=== PATIENT | female | born 1990 | race American Indian/Alaskan Native ===

== ENCOUNTER 2019-06-14 13:53 | Inpatient (IN) | payer OTHER ==
[2019-06-14] MEDS ORDERED: hydrALAZINE 20 MG/1 ML INJ IV PRN (15:31)
[2019-06-14] MEDS ORDERED: LACTATED RINGERS 1,000 ML ONE (16:11)
[2019-06-14] MEDS ORDERED: MAGNESIUM SULFATE 40GM/1000ML 40 GM/1,000 ML BAG IV ONE (16:52)
[2019-06-14] MEDS ORDERED: MAGNESIUM SULFATE 4 GM/100 ML BAG IV ONE ×2 (16:52→19:42)
[2019-06-14 16:53] LABS: Hematocrit 31.8 % (30.3-42.9); Hemoglobin 11.1 gm/dl (10.1-14.3); Mean Corpuscular HGB Conc 35 % (30-34); Mean Corpuscular Volume 87 fl (79-97); Platelet Count 254 K/mm3 (140-440); Red Blood Count 3.67 M/mm3 (3.65-5.03); Red Cell Distribution Width 14.5 % (13.2-15.2)
[2019-06-14 17:17] LABS: Alanine Aminotransferase 13 units/L (7-56)
[2019-06-14 17:18] LABS: Alanine Aminotransferase 13 units/L (7-56); Albumin 3.6 g/dL (3.9-5); BUN/Creatinine Ratio 12; Blood Urea Nitrogen 6 mg/dL (7-17); Calcium 8.9 mg/dL (8.4-10.2); Hemolysis Index 23
--- NOTE | 2019-06-14 18:45 | History and Physical Report ---
History of Present Illness Date of examination: 06/14/19 Date of admission: 06/14/19 15:28 Chief complaint: elevated blood pressure at 22.5 weeks Past History - Obstetrical History : 3 Medications and Allergies Allergies Allergy/AdvReac Type Severity Reaction Status Date / Time No Known Allergies Allergy Unverified 06/14/19 15:26 Active Meds: Active Medications Hydralazine HCl (Apresoline) 10 mg IV Q30MIN PRN PRN Reason: elevated B/p Last Admin: 06/14/19 16:57 Dose: 10 mg Documented by: - Vital Signs Vital signs: Vital Signs Pulse BP 97 H 182/92 06/14/19 14:38 06/14/19 14:38 Temp Pulse Resp BP Pulse Ox 97.9 F 64 16 148/64 06/14/19 14:39 06/14/19 18:26 06/14/19 18:26 06/14/19 18:26 Results Result Diagrams: 06/14/19 16:10 06/14/19 16:10 Abnormal lab results 06/14/19 06/14/19 06/14/19 Range/Units 16:10 16:10 16:10 MCHC 35 H (30-34) % Sodium 136 L (137-145) mmol/L Carbon Dioxide 18 L (22-30) mmol/L BUN 6 L (7-17) mg/dL Creatinine 0.5 L 0.5 L (0.7-1.2) mg/dL Lactate Dehydrogenase 232 H (91-180) units/L Albumin 3.6 L (3.9-5) g/dL All other labs normal.
[2019-06-14] MEDS ORDERED: MAGNESIUM SULFATE 40GM/1000ML 40 GM/1,000 ML BAG IV SCH (19:00)
[2019-06-14 19:24] LABS: Amorphous Crystals,Urine Few; Bilirubin,Urine NEG (Negative); Blood,Urine NEG (Negative); Color,Urine Yellow (Yellow); Mucus,Urine FEW /HPF; Protein,Urine <15 mg/dL mg/dL (Negative)
[2019-06-14] MEDS: ZOLPIDEM 5 MG TAB PO PRN (20:22)
[2019-06-14] MEDS: ONDANSETRON 4 MG/2 ML INJ IV PRN (20:28)
[2019-06-15] MEDS: LACTATED RINGERS 1,000 ML IV SCH ×2 (04:55→20:03)
[2019-06-15] MEDS: ONDANSETRON 4 MG/2 ML INJ IV PRN ×2 (08:57→20:00)
--- NOTE | 2019-06-15 14:49 | Consultation ---
History of Present Illness Consult date: 06/15/19 History of present illness: HPI Ms. Cerrato is a 29 y/o SUELLEN 10/13/19 EGA 22 6/7 weeks Sent in by OB with elevated BP's Patient Followed by [facility] for Schley/Di Twin Preg with Severe IUGR Twin A Patient reports BP's elevated early in ? in first tri - and reports being on antihypertensive meds for around 6 weeks BP's AT [facility] up to 187/106 - received IV Hydralazine 10 mg BP's now 135/79 , 134/80 CAMP's but after Mg started Denies Scotoma or RUQ Pain Followed by [facility] US done 06/07/19 - BP 155/88 Twin A 158g - 0% , , MVP at 2.2 cm, S/D ratio at 5.6 Twin B 464g - 56% , MVP at 5.7 cm , S/D ratio at Discordance - 66% [facility] US done yesterday 06/14/19 - BP at 162/97 Twin A - MVP at 2.87, AEDF Twin B - MVP at 4.32, S/D at 3.30 [facility] US 06/15/19 Twin A at 200g - 0% with AEDF , MVP at 2.3 cm Twin B at 565g - 56% S/D at 3.2 , MVP at 4.1 cm Labs - AST/ALT at Plts at 254 creat at .5 UA spot at < 15 H/H at 07/05 Abd obese NT no RUQ Pain Ext tr edema NT ,DTR 08/26, no clonus Past History - Obstetrical History : 3 Medications and Allergies Allergies Allergy/AdvReac Type Severity Reaction Status Date / Time No Known Allergies Allergy Unverified 06/14/19 15:26 Home Medications Medication Instructions Recorded Confirmed Last Taken Type Methyldopa [Aldomet] 250 mg PO BID 06/15/19 06/15/19 06/14/19 08:00 History Vitamin 1 tab PO DAILY 06/15/19 06/15/19 Unknown History Zofran ODT TAB 4 mg PO TID 06/15/19 06/15/19 06/14/19 08:00 History Active Meds: Active Medications Hydralazine HCl (Apresoline) 10 mg IV Q30MIN PRN PRN Reason: elevated B/p Last Admin: 06/14/19 16:57 Dose: 10 mg Documented by: Lactated Ringer's (Lactated Ringers) 1,000 mls @ 125 mls/hr IV DIRECT LYNETTE Last Admin: 06/15/19 04:55 Dose: 125 mls/hr Documented by: Magnesium Sulfate (Magnesium Sulfate 40gm/1000ml) 40 gm in 1,000 mls @ 50 mls/hr IV DIRECT LYNETTE Ondansetron HCl (Zofran) 4 mg IV Q4H PRN PRN Reason: Nausea And Vomiting Last Admin: 06/15/19 08:57 Dose: 4 mg Documented by: Zolpidem Tartrate (Ambien) 5 mg PO QHS PRN PRN Reason: Sleep Last Admin: 06/14/19 20:22 Dose: 5 mg Documented by: - Vital Signs Vital signs: Vital Signs Pulse BP 97 H 182/92 06/14/19 14:38 06/14/19 14:38 Temp Pulse Resp BP Pulse Ox 98.5 F 102 H 18 144/86 06/15/19 12:33 06/15/19 13:14 06/15/19 12:33 06/15/19 13:14 Results Result Diagrams: 06/14/19 16:10 06/14/19 16:10 Abnormal lab results 06/14/19 06/14/19 06/14/19 Range/Units 16:10 16:10 16:10 MCHC 35 H (30-34) % Sodium 136 L (137-145) mmol/L Carbon Dioxide 18 L (22-30) mmol/L BUN 6 L (7-17) mg/dL Creatinine 0.5 L 0.5 L (0.7-1.2) mg/dL Magnesium (1.7-2.3) mg/dL Lactate Dehydrogenase 232 H (91-180) units/L Albumin 3.6 L (3.9-5) g/dL 06/15/19 Range/Units 00:39 MCHC (30-34) % Sodium (137-145) mmol/L Carbon Dioxide (22-30) mmol/L BUN (7-17) mg/dL Creatinine (0.7-1.2) mg/dL Magnesium 4.40 H (1.7-2.3) mg/dL Lactate Dehydrogenase (91-180) units/L Albumin (3.9-5) g/dL All other labs normal. Assessment and Plan Impression: 1. Schley/Di Twin IUP at 22 6/7 weeks 2. Selective IUGR Twin A - (Possible brewing TTTS but does not yet meet criteria) 3. Twin A Severe IUGR with AEDF 4. Twin B - EFW at 56% 5. Suspected CHTN - R/O superimposed preeclampsia 6. Prior C/S 7. Prior H/O Preeclampsia at 32 weeks 8. MO Recommendations: 1. Patient does not meet criteria for TTTS at this time 2. High risk for demise of Twin A - This could adversely effect Twin B - (Neurological Insult) - Reviewed by both [facility] and NICU 3. Steroids for FLM at 23 5/7 weeks 4. Currently on Mg - May dc after 24 hours if no S/S of Preeclampsia with severe features 5. PIH labs twice per week while in house 6. Cord dopplers twice per week and MVP's and check bladder Twin A and B (once 26 weeks would add BPP's) 7. Dr. Sánchez also consulted patient - 8. Poor prognosis and increase risk for both neurological and physical handicaps if born at 23 - 24 weeks 9. Will continue to monitior closeley fo 10. Discontinue Methyldopa and start Labetalol 200 BID 11. EFW q 2 weeks 12. Patient counseled about different scenarios, including early delivery but very high risk at 23 to 24 weeks of morbidity and mortality, 13. Delivery would be recommended regardless for S/S of severe preeclampsia 14. IF not done - obtain TSH and 1 hour GTT, would also obtain HbA1c, 24 Hour urine for prot and CC and EKG , Torch IgG and IgM and drug screen and Antiphospholipid screen
--- NOTE | 2019-06-15 14:54 | Consultation ---
Consult Note - Parent Education Parent(s) demonstrated understanding of all the information:: Yes Additional Comment: 29 year old mother with 3 living children between the ages of 2 and 9 years old presenting with twin at 22w6d complicated by hypertension and discordant growth. Twin A is 200g, Twin B 560g currently with no definitive evidence of TTTS. Perinatologist was present for parts of this consultation and agrees that prognosis for babies is very poor especially if d elivery is indicated at an early gestation with little chance of survival without severe neurologic deficits ( 22 weeks - ~10% survival with > 50% suffering neurologic deficits and increasing survival of about 10% with every additional week of gestation). Both parents were present for this consultation. I explained that babies with severe nerologic deficits will have hearing deficits, blindness and immobility, and will not function at the same level as other children do. Based on the current poor prognosis, I explained the option of comfort care if babies need to be delivered for maternal indications in 1 - 2 weeks.(i.e. prior to 25 weeks gestation) and parents had the opportunity to ask questions which I answered to the best of my ability. Both parents understood the information provided and I encouraged them to call the NICU if they had additional questions Assessment and Plan - Assessment Estimated Weight: Twin A:200g, Twin B:560 g - Plan Plan: Timing and mode of delivery per OB team NICU will attend delivery Will continue to follow as progresses Please call NICU with questions
--- NOTE | 2019-06-15 15:40 | Ultrasound Report ---
Umbilical artery Doppler INDICATION: IUGR, twin gestation FINDINGS: Umbilical cord Doppler, BABY B heart rate is 137 bpm. S/D ratio is 3.8 ( average) Resistive index (average) equals 0.73 Waveforms are normal and persistent IMPRESSION: S/D ratio and resistive index are within normal limits for BABY B.. Signer Name: Yariel Monreal MD Signed: 06/15/2019 3:36 PM Workstation Name: [id number]
[2019-06-15] MEDS ORDERED: ACETAMINOPHEN 325 MG TAB PO PRN (15:44)
--- NOTE | 2019-06-15 16:14 | Ultrasound Report ---
Limited OB ultrasound with umbilical artery Doppler INDICATION: Intrauterine growth retardation. COMPARISON: None available. FINDINGS: The heart rate for baby A is 130 bpm. The average pulsitivity index of the umbilical artery is 3.1. No end-diastolic flow is reported. The pattern is persistent per the technologist. IMPRESSION: Abnormal umbilical artery Doppler for baby A as above is suggestive of intrauterine growth retardatio n. Signer Name: Carrington Arias MD Signed: 06/15/2019 4:10 PM Workstation Name: [id number]
--- NOTE | 2019-06-15 20:10 | Progress Note ---
Assessment and Plan Patient here with preeclampsia and iugr of twin A at zero percentile at [address] Boothe, growth discordance does not meet criteria for twin to twin. Will continue to monitor each fetus. Plan to give steroids at 23.5 weeks. 24 hour urine in process although it was supposed to be initiated on yesterday. Continue current management Subjective - Subjective Date of service: 06/15/19 Principal diagnosis: Twin IUP at 22 weeks Interval history: I feel fine Patient reports: new complaints (nausea) Objective - Vital Signs Vital Signs: Vital Signs - 12hr 06/15/19 06/15/19 06/15/19 08:12 09:03 12:31 Temperature 97.4 F L Pulse Rate 90 84 88 Respiratory 18 Rate Blood Pressure 135/79 134/80 161/98 Blood Pressure 135/79 [Left] 06/15/19 06/15/19 06/15/19 12:33 13:14 16:43 Temperature 98.5 F Pulse Rate 88 102 H 94 H Respiratory 18 Rate Blood Pressure 144/86 147/81 Blood Pressure 161/98 [Left] - Exam Breasts: deferred Cardiovascular: Regular rate, Normal S1, Normal S2 Lungs: Clear to auscultation, Normal air movement Abdomen: Present: normal appearance, soft, normal bowel sounds Uterus: Present: normal, firm FHR: auscultation normal - Labs Labs: Abnormal Labs 06/14/19 06/14/19 06/14/19 16:10 16:10 16:10 MCHC 35 H Sodium 136 L Carbon Dioxide 18 L BUN 6 L Creatinine 0.5 L 0.5 L Magnesium Lactate Dehydrogenase 232 H Albumin 3.6 L 06/15/19 00:39 MCHC Sodium Carbon Dioxide BUN Creatinine Magnesium 4.40 H Lactate Dehydrogenase Albumin Laboratory Results - last 24 hr 06/14/19 06/14/19 06/15/19 16:10 Unknown 00:39 Magnesium 4.40 H Urine Color Yellow Urine Turbidity Cloudy Urine pH 7.0 Ur Specific [place] 1.016 Urine Protein <15 mg/dl Urine Glucose (UA) Neg Urine Ketones Neg Urine Blood Neg Urine Nitrite Neg Urine Urobilinogen 2.0 Ur Leukocyte Esterase Neg Urine WBC (Auto) 1.0 Amorphous Crystals Few Urine Mucus Few Antibody Screen Negative
[2019-06-15] MEDS: DOCUSATE SODIUM 100 MG CAP PO SCH (20:34)
[2019-06-15] MEDS: LABETALOL 200 MG TAB PO SCH (22:48)
[2019-06-15] MEDS: ZOLPIDEM 5 MG TAB PO PRN (22:58)
[2019-06-16] MEDS: ONDANSETRON 4 MG/2 ML INJ IV PRN ×3 (08:46→20:30)
[2019-06-16] MEDS: DOCUSATE SODIUM 100 MG CAP PO SCH ×2 (10:08→22:04)
[2019-06-16] MEDS: LABETALOL 200 MG TAB PO SCH ×2 (10:09→22:04)
[2019-06-16] MEDS ORDERED: FLU VACC QUAD 2019-20 (3 YR UP)/PF 60 MCG/0.5 ML SYRINGE IM ONE (12:00)
--- NOTE | 2019-06-16 14:36 | Consultation ---
History of Present Illness Consult date: 06/16/19 Requesting physician: GAIL AGUIRRE History of present illness: [facility]/SHAJI 06/16/19 Ms. Cerrato is a 29 y/o SUELLEN 10/13/19 EGA 23 0/7 weeks Patient Followed by [facility] for [place]/Di Twin Preg with Severe IUGR Twin A - Sent in by [facility] due to Twin A Severe IUGR and AEDF Patient reports BP's elevated early in ? in first tri - and reports being on antihypertensive meds for around 6 weeks Discuss[address] Case with Dr. Chavez Surgeon at [facility] Does Not Meet Criteria at Present time for TTTS - Meet Criteria for Selective IUGR Twin A They do not offer Termination (Cord Occlusion) due to Law on Termination ( Sacrifice Twin A so that Twin B might not suffer neurological insult should Twin A Pass) They said [facility] and [place] might offer Termination I counseled both [facility] and [facility] and offered they termination Twin A (Cord Occlusion) and they DECLINED - "they want everything done for both babies" Nurse Philly in room They might meet criteria for Laser per [facility] should TTTS develop of possibly Persistent Reversal EDF Followed by [facility] BUENO US done 06/07/19 - BP 155/88 Twin A 158g - 0% , , MVP at 2.2 cm, S/D ratio at 5.6 Twin B 464g - 56% , MVP at 5.7 cm , S/D ratio at Discordance - 66% [facility] US done yesterday 06/14/19 - BP at 162/97 Twin A - MVP at 2.87, AEDF Twin B - MVP at 4.32, S/D at 3.30 [facility] US 06/15/19 Twin A at 200g - 0% with AEDF , MVP at 2.3 cm Twin B at 565g - 56% S/D at 3.2 , MVP at 4.1 cm Labs - AST/ALT at Plts at 254 creat at .5 UA spot at < 15 H/H at 07/05 Abd obese NT no RUQ Pain Ext tr edema NT ,DTR 08/26, no clonus BP's now stable on Labetalol 200 BID 142/71 and 143/98 (IV being started) Denies Scotoma or RUQ Pain CAMP now resolved off Mg [facility] 06/15/19 Twin A at 200g - 0% with AEDF , MVP at 2.3 cm Twin B at 565g - 56% S/D at 3.2 , MVP at 4.1 cm Labs - AST/ALT at Plts at 254 creat at .5 UA spot at < 15 H/H at 07/05 24 Hour Urine completed results pending Abd obese NT no RUQ Pain Ext no edema NT ,DTR 08/26, no clonus Past History - Obstetrical History : 3 Medications and Allergies Allergies Allergy/AdvReac Type Severity Reaction Status Date / Time No Known Allergies Allergy Unverified 06/14/19 15:26 Home Medications Medication Instructions Recorded Confirmed Last Taken Type Methyldopa [Aldomet] 250 mg PO BID 06/15/19 06/15/19 06/14/19 08:00 History Vitamin 1 tab PO DAILY 06/15/19 06/15/19 Unknown History Zofran ODT TAB 4 mg PO TID 06/15/19 06/15/19 06/14/19 08:00 History Active Meds: Active Medications Acetaminophen (Tylenol) 650 mg PO Q6H PRN PRN Reason: Pain, Mild (1-3) Last Admin: 06/15/19 16:39 Dose: 650 mg Documented by: Docusate Sodium (Colace) 100 mg PO BID [facility] Last Admin: 06/16/19 10:08 Dose: 100 mg Documented by: Hydralazine HCl (Apresoline) 10 mg IV Q30MIN PRN PRN Reason: elevated B/p Last Admin: 06/14/19 16:57 Dose: 10 mg Documented by: Lactated Ringer's (Lactated Ringers) 1,000 mls @ 125 mls/hr IV DIRECT LYNETTE Last Admin: 06/15/19 20:03 Dose: 125 mls/hr Documented by: Magnesium Sulfate (Magnesium Sulfate 40gm/1000ml) 40 gm in 1,000 mls @ 50 mls/hr IV DIRECT LYNETTE Last Infusion: 06/15/19 17:35 Dose: 0 gm/hr, 0 mls/hr Documented by: Labetalol HCl (Labetalol) 200 mg PO BID LYNETTE Last Admin: 06/16/19 10:09 Dose: 200 mg Documented by: Ondansetron HCl (Zofran) 4 mg IV Q4H PRN PRN Reason: Nausea And Vomiting Last Admin: 06/16/19 13:37 Dose: 4 mg Documented by: Zolpidem Tartrate (Ambien) 5 mg PO QHS PRN PRN Reason: Sleep Last Admin: 06/15/19 22:58 Dose: 5 mg Documented by: - Vital Signs Vital signs: Vital Signs Pulse BP 97 H 182/92 06/14/19 14:38 06/14/19 14:38 Temp Pulse Resp BP Pulse Ox 98.8 F 75 18 142/71 06/16/19 12:11 06/16/19 13:35 06/16/19 12:11 06/16/19 13:37 Results Result Diagrams: 06/14/19 16:10 06/14/19 16:10 All other labs normal.
[2019-06-16] MEDS: ZOLPIDEM 5 MG TAB PO PRN (22:06)
--- NOTE | 2019-06-16 22:15 | Progress Note ---
Subjective - Subjective Date of service: 06/16/19 Principal diagnosis: Twin IUP at 23 weeks, Pre-eclampsia Interval history: I feel fine Patient reports: new complaints (nausea) Objective - Vital Signs Vital Signs: Vital Signs - 12hr 06/16/19 06/16/19 06/16/19 12:11 13:35 13:37 Temperature 98.8 F Pulse Rate 74 75 Respiratory 18 Rate Blood Pressure 143/98 142/71 Blood Pressure 143/98 142/71 [Left] 06/16/19 06/16/19 06/16/19 16:32 16:33 20:41 Temperature 98.4 F 98.8 F Pulse Rate 63 63 74 Respiratory 18 18 Rate Blood Pressure 139/72 Blood Pressure 139/72 144/78 [Left] 06/16/19 06/16/19 06/16/19 20:43 22:04 22:06 Temperature Pulse Rate 71 67 67 Respiratory Rate Blood Pressure 144/78 161/89 161/89 Blood Pressure [Left] - Exam Breasts: deferred Cardiovascular: Regular rate, Normal S1, Normal S2 Lungs: Clear to auscultation, Normal air movement Abdomen: Present: normal appearance, soft, normal bowel sounds - Labs Labs: Abnormal Labs 06/14/19 06/14/19 06/14/19 16:10 16:10 16:10 MCHC 35 H Sodium 136 L Carbon Dioxide 18 L BUN 6 L Creatinine 0.5 L 0.5 L Magnesium Lactate Dehydrogenase 232 H Albumin 3.6 L 06/15/19 00:39 MCHC Sodium Carbon Dioxide BUN Creatinine Magnesium 4.40 H Lactate Dehydrogenase Albumin
[2019-06-16 22:29] LABS: Creatinine,Urine 57.3 mg/dL (0.1-20.0)
[2019-06-17 03:07] LABS: Creatinine 24 Hour,Urine 1.7 (0.8-2.8)
[2019-06-17] MEDS: LABETALOL 200 MG TAB PO SCH ×2 (09:13→22:14)
[2019-06-17] MEDS: ONDANSETRON 4 MG/2 ML INJ IV PRN ×3 (10:04→22:14)
[2019-06-17] MEDS: ZOLPIDEM 5 MG TAB PO PRN (22:14)
[2019-06-17] MEDS: DOCUSATE SODIUM 100 MG CAP PO SCH (22:16)
[2019-06-18] MEDS: LABETALOL 200 MG TAB PO SCH ×2 (09:09→22:15)
[2019-06-18] MEDS: DOCUSATE SODIUM 100 MG CAP PO SCH (09:11)
[2019-06-18] MEDS: ONDANSETRON 4 MG/2 ML INJ IV PRN ×3 (09:25→19:23)
[2019-06-18] MEDS: ZOLPIDEM 5 MG TAB PO PRN (22:16)
[2019-06-19] MEDS: LABETALOL 200 MG TAB PO SCH ×2 (09:41→21:50)
[2019-06-19] MEDS: DOCUSATE SODIUM 100 MG CAP PO SCH ×2 (09:41→22:00)
--- NOTE | 2019-06-19 11:17 | Progress Note ---
Assessment and Plan HD 4 for this twin IUP with selective IUGR or baby A. Will administer steroids at 23.5. Continue current management Subjective - Subjective Date of service: 06/17/19 Principal diagnosis: Twin IUP at 23 weeks, Pre-eclampsia Interval history: I feel fine. Pt is now 23 weeks. Pt made request to go outside. She denies headache or any other issues. BP has been stable Patient reports: new complaints (nausea) Objective - Vital Signs Vital Signs: Vital Signs - 12hr 06/19/19 06/19/19 06/19/19 08:02 08:07 09:34 Temperature 98.3 F Pulse Rate 76 72 Respiratory 18 Rate Blood Pressure 144/79 O2 Sat by Pulse 98 Oximetry 06/19/19 09:41 Temperature Pulse Rate 72 Respiratory Rate Blood Pressure 144/79 O2 Sat by Pulse Oximetry - Exam Abdomen: Present: normal appearance, soft. Absent: distention, tenderness Uterus: Present: normal FHR: auscultation normal - Labs Labs: Abnormal Labs 06/14/19 06/14/19 06/14/19 16:10 16:10 16:10 MCHC 35 H Sodium 136 L Carbon Dioxide 18 L BUN 6 L Creatinine 0.5 L 0.5 L Magnesium Lactate Dehydrogenase 232 H Albumin 3.6 L Urine Creatinine Ur Total Protein 24 Hr 06/15/19 06/15/19 00:39 Unknown MCHC Sodium Carbon Dioxide BUN Creatinine Magnesium 4.40 H Lactate Dehydrogenase Albumin Urine Creatinine 57.3 H Ur Total Protein 24 Hr 330.00 H
--- NOTE | 2019-06-19 13:50 | Progress Note ---
Assessment and Plan Impression: 1. [place]/Di Twin IUP at 23 3/7 weeks 2. Selective IUGR Twin A - (Possible brewing TTTS but does not yet meet criteria) 3. Twin A Severe IUGR with AEDF; today's BPP 01/28; breathing not observed on ultrasound dated 06/19/19 4. Twin B - EFW at 56%; today's BPP 8/8 dated 06/19/19 5. Suspected CHTN - R/O superimposed preeclampsia; 24H urine 330 mg 6. Prior C/S 7. Prior H/O Preeclampsia at 32 weeks 8. Obesity 9. BP in 140's/70's-80's Recommendations: 1. High risk for demise of Twin A - This could adversely effect Twin B - (Neurological Insult) - Reviewed by both [facility] and NICU 3. Steroids for FLM at 23 5/7 weeks 4. With stable BPP and no s/s preeclampsia, no change in status, may coy consider discharge S/P steroid with follow up 3 times weekly with [facility] per discussion with Dr. Younger. 5. PIH labs twice per week while in house 6. Cord dopplers On Wednesday/Wednesday/Fridays for and MVP's and check bladder Twin A and B (once 26 weeks would add BPP's) 7. Poor prognosis and increase risk for both neurological and physical handicaps if born at 23 - 24 weeks 8. Will continue to monitor closely 9. Continue Labetalol 200 BID 10. EFW q 2 weeks 13. Delivery would be recommended regardless for S/S of severe preeclampsia 14. IF not done - obtain TSH and 1 hour GTT, would also obtain HbA1c, 24 Hour urine for prot and CC and EKG , Torch IgG and IgM and drug screen 15. Initiate Low Dose Aspirin. Should you have any questions or concern, please contact our on-call physician, Dr. Younger. Thank you. Subjective - Subjective Date of service: 06/19/19 Principal diagnosis: Twin IUP at 23 weeks, Pre-eclampsia Patient reports: new complaints (denies ausea, LOF, vaginal bleeding, persistent cramping/contractions.) Objective - Vital Signs Vital Signs: Vital Signs - 12hr 06/19/19 06/19/19 06/19/19 08:02 08:07 09:34 Temperature 98.3 F Pulse Rate 76 72 Respiratory 18 Rate Blood Pressure 144/79 Blood Pressure [Left] O2 Sat by Pulse 98 Oximetry 06/19/19 06/19/19 06/19/19 09:41 11:32 11:48 Temperature 98.9 F Pulse Rate 72 82 91 H Respiratory 18 Rate Blood Pressure 144/79 144/83 Blood Pressure 144/83 [Left] O2 Sat by Pulse 98 Oximetry 06/19/19 06/19/19 06/19/19 11:53 11:58 12:03 Temperature Pulse Rate 88 81 80 Respiratory Rate Blood Pressure Blood Pressure [Left] O2 Sat by Pulse 97 97 97 Oximetry 06/19/19 06/19/19 06/19/19 12:08 12:13 12:18 Temperature Pulse Rate 79 80 73 Respiratory Rate Blood Pressure Blood Pressure [Left] O2 Sat by Pulse 97 98 98 Oximetry 06/19/19 06/19/19 06/19/19 12:23 12:28 12:34 Temperature Pulse Rate 75 81 88 Respiratory Rate Blood Pressure Blood Pressure [Left] O2 Sat by Pulse 96 98 99 Oximetry 06/19/19 06/19/19 06/19/19 12:39 12:44 12:49 Temperature Pulse Rate 89 82 86 Respiratory Rate Blood Pressure Blood Pressure [Left] O2 Sat by Pulse 98 99 98 Oximetry 06/19/19 06/19/19 06/19/19 12:54 12:59 13:04 Temperature Pulse Rate 82 83 90 Respiratory Rate Blood Pressure Blood Pressure [Left] O2 Sat by Pulse 98 98 98 Oximetry 06/19/19 06/19/19 06/19/19 13:09 13:14 13:19 Temperature Pulse Rate 80 68 76 Respiratory Rate Blood Pressure Blood Pressure [Left] O2 Sat by Pulse 97 98 96 Oximetry 06/19/19 06/19/19 06/19/19 13:24 13:29 13:34 Temperature Pulse Rate 97 H 98 H 84 Respiratory Rate Blood Pressure Blood Pressure [Left] O2 Sat by Pulse 98 99 99 Oximetry - Exam Cardiovascular: Regular rate Lungs: Normal air movement Abdomen: Present: other (gravid) - Labs Labs: Abnormal Labs 06/14/19 06/14/19 06/14/19 16:10 16:10 16:10 MCHC 35 H Sodium 136 L Carbon Dioxide 18 L BUN 6 L Creatinine 0.5 L 0.5 L Magnesium Lactate Dehydrogenase 232 H Albumin 3.6 L Urine Creatinine Ur Total Protein 24 Hr 06/15/19 06/15/19 00:39 Unknown MCHC Sodium Carbon Dioxide BUN Creatinine Magnesium 4.40 H Lactate Dehydrogenase Albumin Urine Creatinine 57.3 H Ur Total Protein 24 Hr 330.00 H
--- NOTE | 2019-06-19 14:21 | Ultrasound Report ---
Limited OB Ultrasound Biophysical profile HISTORY: Twin gestations, intrauterine growth retardation assessment. TECHNIQUE: Grayscale and color Doppler imaging performed. COMPARISON: OB ultrasound from 06/15/2019 FINDINGS: There are twin gestations. Please see below: Twin A: Heart rate of 142 bpm. On biophysical profile, the fetus received a score of 0 out of 2 for f etal breathing movement, 2 out of 2 for movement, 2 out of 2 for posture/tone, and 2 out of 2 for qualitative QUYEN. Total score was 6 out of 8. Twin B: Heart rate is 144 bpm. On biophysical profile, the fetus received a score of 2 out of 2 for f etal breathing movement, movement, posture/tone, and QUYEN. IMPRESSION: 1. BPP score of 6 out of 8 for twin A. 2. BPP score of 8 out of 8 for twin B. Signer Name: Juan Pablo Crowe MD Signed: 06/19/2019 2:16 PM Workstation Name: [id number]
--- NOTE | 2019-06-19 14:30 | Ultrasound Report ---
Umbilical vascular Ultrasound HISTORY: Twin gestations, history of IUGR and previous abnormal umbilical vascular ultrasound. TECHNIQUE: Grayscale and color Doppler imaging performed. COMPARISON: Umbilical vascular ultrasound from 06/15/2019 FINDINGS: Twin A: heart rate is 142 bpm. There is no end-diastolic flow therefore a pulsatility index was determined once again. The pulsatility index average in 3 separate free loop segments of bowel is 2. 0. Twin B: heart rate is 144 bpm. The systolic to diastolic ratio averages 4.2 with normal wavefor m and persistent blood flow. The resistive index average in 3 separate free loop segments is 0.75 wit h normal waveform and persistent blood flow. IMPRESSION: 1. Findings of IUGR again seen in twin A. 2. Unremarkable exam for twin B. Signer Name: Juan Pablo Crowe MD Signed: 06/19/2019 2:26 PM Workstation Name: [id number]
[2019-06-19] MEDS: ZOLPIDEM 5 MG TAB PO PRN (21:50)
[2019-06-19] MEDS: LACTATED RINGERS 1,000 ML IV SCH (21:55)
[2019-06-20] MEDS: LACTATED RINGERS 1,000 ML IV SCH ×2 (06:12→18:14)
--- NOTE | 2019-06-20 09:14 | Progress Note ---
Assessment and Plan Twin IUP at 23.4 weeks here with Severe IUGR of twin A and Normal growth of Twin B. Per [facility] patient may be able to be managed as outpatient after steroids on Wednesday. Pt has normal urine protein level so likely chronic hypertension instead of PIH. Plan to give steroids on Wednesday evening with repeat dose on Subjective - Subjective Date of service: 06/20/19 Principal diagnosis: Twin IUP at 23 weeks, Pre-eclampsia Interval history: I feel fine. Pt is now 23 weeks. Pt made request to go outside. She denies headache or any other issues. BP has been stable Patient reports: new complaints (denies ausea, LOF, vaginal bleeding, persistent cramping/contractions.) Objective - Vital Signs Vital Signs: Vital Signs - 12hr 06/19/19 06/20/19 06/20/19 21:50 06:10 06:11 Temperature 98.5 F Pulse Rate 86 79 83 Respiratory 18 Rate Blood Pressure 140/91 133/84 Blood Pressure [Left] O2 Sat by Pulse 100 Oximetry 06/20/19 08:17 Temperature 98.2 F Pulse Rate 67 Respiratory 18 Rate Blood Pressure 156/97 Blood Pressure 156/97 [Left] O2 Sat by Pulse Oximetry - Exam Breasts: deferred Cardiovascular: Regular rate, Normal S1 Lungs: Clear to auscultation, Normal air movement Abdomen: Present: normal appearance, soft, normal bowel sounds Vulva: both: normal Uterus: Present: normal, firm FHR: auscultation normal - Labs Labs: Abnormal Labs 06/14/19 06/14/19 06/14/19 16:10 16:10 16:10 MCHC 35 H Sodium 136 L Carbon Dioxide 18 L BUN 6 L Creatinine 0.5 L 0.5 L Magnesium Lactate Dehydrogenase 232 H Albumin 3.6 L Urine Creatinine Ur Total Protein 24 Hr 06/15/19 06/15/19 00:39 Unknown MCHC Sodium Carbon Dioxide BUN Creatinine Magnesium 4.40 H Lactate Dehydrogenase Albumin Urine Creatinine 57.3 H Ur Total Protein 24 Hr 330.00 H
[2019-06-20] MEDS: LABETALOL 200 MG TAB PO SCH ×2 (09:49→22:00)
[2019-06-20] MEDS: DOCUSATE SODIUM 100 MG CAP PO SCH (09:50)
--- NOTE | 2019-06-20 12:44 | Progress Note ---
Assessment and Plan Assessment: -[place]/Di Twin IUP at 23.4 weeks - Selective IUGR Twin A and AEDF ( 06/19/19 BPP /) -Twin B - EFW at 56% (06/19/19 BPP 03/30) - CHTN vs GHTN- 24H urine 330 mg - Preeclampsia hx at 32 weeks - Blood Pressures in 130's-150's/70's-100's- Labetalol 200mg BID Recommendations: -Continue with plan of care - Initiate Steroids for FLM at 23.5 weeks (tomorrow 06/21/19) -Cord dopplers On Wednesday/Wednesday/Fridays for and MVP's and check bladder Twin A and B (once 26 weeks would add BPP's) - High risk for demise of Twin A - This could adversely effect Twin B - (Neurological Insult) - Reviewed by both [facility] and NICU -Poor prognosis and increase risk for both neurological and physical handicaps if born at 23 - 24 weeks - With stable BPP and no s/s preeclampsia, no change in status, may consider discharge S/P steroid with follow up 3 times weekly with [facility] per manolo scussion with Dr. Younger. - PIH labs twice per week while in house -Will continue to monitor closely - Continue Labetalol 200 BID - EFW q 2 weeks - Delivery would be recommended regardless for S/S of severe preeclampsia - Please perform TSH and 1 hour GTT, would also obtain HbA1c, 24 Hour urine for prot and CC and EKG , Torch IgG and IgM and drug screen - Low Dose Aspirin once daily. Should you have any questions or concern, please contact our on-call physician. Thank you. Subjective - Subjective Date of service: 06/20/19 Principal diagnosis: Twin IUP at 23 weeks, Pre-eclampsia Patient reports: new complaints (denies RUQ pain, headaches, visual disturbances, edema, Leaking of fluid, vaginal bleeding, contractions.) Objective - Vital Signs Vital Signs: Vital Signs - 12hr 06/20/19 06/20/19 06/20/19 06:10 06:11 08:17 Temperature 98.2 F Pulse Rate 79 83 67 Respiratory 18 Rate Blood Pressure 133/84 156/97 Blood Pressure 156/97 [Left] O2 Sat by Pulse 100 Oximetry 06/20/19 06/20/19 06/20/19 09:49 12:29 12:30 Temperature Pulse Rate 67 77 70 Respiratory Rate Blood Pressure 156/97 158/103 136/76 Blood Pressure [Left] O2 Sat by Pulse Oximetry - Exam Breasts: deferred Cardiovascular: Regular rate, Normal S1, Normal S2 Lungs: Clear to auscultation, Normal air movement Abdomen: Present: normal appearance, soft, other (gravid) - Labs Labs: Abnormal Labs 06/14/19 06/14/19 06/14/19 16:10 16:10 16:10 MCHC 35 H Sodium 136 L Carbon Dioxide 18 L BUN 6 L Creatinine 0.5 L 0.5 L Magnesium Lactate Dehydrogenase 232 H Albumin 3.6 L Urine Creatinine Ur Total Protein 24 Hr 06/15/19 06/15/19 00:39 Unknown MCHC Sodium Carbon Dioxide BUN Creatinine Magnesium 4.40 H Lactate Dehydrogenase Albumin Urine Creatinine 57.3 H Ur Total Protein 24 Hr 330.00 H
[2019-06-20] MEDS: ASPIRIN 81 MG TAB CHEW PO SCH (16:20)
[2019-06-20] MEDS: ZOLPIDEM 5 MG TAB PO PRN (22:03)
[2019-06-21] MEDS: LABETALOL 200 MG TAB PO SCH ×2 (10:40→22:19)
[2019-06-21] MEDS: BETAMET ACET/BETAMET NA PH 6 MG/ML INJ 5 ML MDV IM SCH (19:56)
--- NOTE | 2019-06-21 22:04 | Progress Note ---
Assessment and Plan Twin IUP at 23.5 weeks with severe IUGR of Twin A. Patient aware of poor prognosis of Twin a and possible neurological damage to Twin B if other twin dies, but wants everything done for both. Pt also with chronic hypertension and less likely mild preeclampsia. BPs stable and all PIH labs within normal limits Pt to receive steroids on today 06/21/19 and second dose on tomorrow, with possible discharge and outpatient management on Wednesday. but will await [facility] input for final decision on discharge. Subjective - Subjective Date of service: 06/21/19 Principal diagnosis: Twin IUP at 23 weeks, Pre-eclampsia Interval history: I feel fine. Pt is now 23 weeks. Pt made request to go outside. She denies headache or any other issues. BP has been stable Patient reports: new complaints (denies RUQ pain, headaches, visual disturbances, edema, Leaking of fluid, vaginal bleeding, contractions.), movement normal Objective - Vital Signs Vital Signs: Vital Signs - 12hr 06/21/19 06/21/19 06/21/19 16:00 20:01 20:02 Temperature 97.4 F L Pulse Rate 95 H 68 68 Respiratory 16 Rate Blood Pressure 145/81 140/78 Blood Pressure 140/78 [Left] O2 Sat by Pulse Oximetry 06/21/19 06/21/19 20:05 20:10 Temperature Pulse Rate 69 82 Respiratory Rate Blood Pressure Blood Pressure [Left] O2 Sat by Pulse 97 98 Oximetry - Exam Breasts: deferred Abdomen: Present: normal appearance, soft. Absent: distention, tenderness Uterus: Present: normal FHR: auscultation normal - Labs Labs: Abnormal Labs 06/14/19 06/14/19 06/14/19 16:10 16:10 16:10 MCHC 35 H Sodium 136 L Carbon Dioxide 18 L BUN 6 L Creatinine 0.5 L 0.5 L Magnesium Lactate Dehydrogenase 232 H Albumin 3.6 L Urine Creatinine Ur Total Protein 24 Hr 06/15/19 06/15/19 00:39 Unknown MCHC Sodium Carbon Dioxide BUN Creatinine Magnesium 4.40 H Lactate Dehydrogenase Albumin Urine Creatinine 57.3 H Ur Total Protein 24 Hr 330.00 H
[2019-06-21] MEDS: DOCUSATE SODIUM 100 MG CAP PO SCH ×2 (22:18→22:19)
[2019-06-21] MEDS: ZOLPIDEM 5 MG TAB PO PRN (22:23)
--- NOTE | 2019-06-22 09:05 | Consultation ---
History of Present Illness Consult date: 06/22/19 Requesting physician: GAIL AGUIRRE History of present illness: [facility] MFM 06/22/19 Doing well No complaints - Denies CAMP's [place] or RUQ Pain Pos FM's Denies Vag bleeding leaking contrax Previously declined cord occlusion Twin A - wants everthing done [facility] 06/19/19 Twin A (IUGR) - Cord Doppler - AEDF - MVP at 2.34cm - BPP 01/28 (-2 breathing ) Twin B - Cord doppler at 4.2 and MVP at 3.8 cm - BPP 03/30 BP - 132/68 Abd obese nt no RUQ Pain Ext NT no edema DTR 08/26 no clonus Assessment: - [place]/Di Twin IUP at 23 5/7 weeks - Selective IUGR Twin A and AEDF ( 06/19/19 BPP /8) -Twin B - EFW at 56% (06/19/19 BPP 03/30) - CHTN vs GHTN- 24H urine 330 mg - Preeclampsia hx at 32 weeks - Blood Pressures in 130's-150's/70's-100's- Labetalol 200mg BID Recommendations: -Continue with plan of care - Initiate Steroids for FLM at First dose given today 06/22/19 -Cord dopplers On Wednesday/Wednesday/Fridays for and MVP's and check bladder Twin A and B (once 26 weeks would add BPP's) - High risk for demise of Twin A - This could adversely effect Twin B - (Neurological Insult) - Reviewed by both [facility] and NICU -Poor prognosis and increase risk for both neurological and physical handicaps if born at 23 - 24 weeks - With stable BPP and no s/s preeclampsia, no change in status, may consider discharge S/P steroid with follow up 3 times weekly with [facility] per discussion with Dr. Younger. - [facility] labs twice per week while in house -Will continue to monitor closely - Continue Labetalol 200 BID - EFW q 2 weeks - Delivery would be recommended regardless for S/S of severe preeclampsia - Please perform TSH and 1 hour GTT, would also obtain HbA1c, 24 Hour urine for prot and CC and EKG , Torch IgG and IgM and drug screen - Low Dose Aspirin once daily. Past History - Obstetrical History : 3 Medications and Allergies Allergies Allergy/AdvReac Type Severity Reaction Status Date / Time No Known Allergies Allergy Unverified 06/14/19 15:26 Home Medications Medication Instructions Recorded Confirmed Last Taken Type Methyldopa [Aldomet] 250 mg PO BID 06/15/19 06/15/19 06/14/19 08:00 History Vitamin 1 tab PO DAILY 06/15/19 06/15/19 Unknown History Zofran ODT TAB 4 mg PO TID 06/15/19 06/15/19 06/14/19 08:00 History Active Meds: Active Medications Acetaminophen (Tylenol) 650 mg PO Q6H PRN PRN Reason: Pain, Mild (1-3) Last Admin: 06/15/19 16:39 Dose: 650 mg Documented by: Aspirin (Baby Aspirin) 81 mg PO QDAY [facility] Last Admin: 06/20/19 16:20 Dose: 81 mg Documented by: Betamethasone Acet/Betameth SodPhos (Celestone Soluspan) 12 mg IM Q24HR [facility] Stop: 06/22/19 10:01 Last Admin: 06/21/19 19:56 Dose: 12 mg Documented by: Docusate Sodium (Colace) 100 mg PO BID [facility] Last Admin: 06/21/19 22:19 Dose: 100 mg Documented by: Hydralazine HCl (Apresoline) 10 mg IV Q30MIN PRN PRN Reason: elevated B/p Last Admin: 06/14/19 16:57 Dose: 10 mg Documented by: Lactated Ringer's (Lactated Ringers) 1,000 mls @ 125 mls/hr IV DIRECT [facility] Last Infusion: 06/20/19 23:37 Dose: 0 mls/hr Documented by: Magnesium Sulfate (Magnesium Sulfate 40gm/1000ml) 40 gm in 1,000 mls @ 50 mls/hr IV DIRECT [facility] Last Infusion: 06/15/19 17:35 Dose: 0 gm/hr, 0 mls/hr Documented by: Labetalol HCl (Labetalol) 200 mg PO BID [facility] Last Admin: 06/21/19 22:19 Dose: 200 mg Documented by: Ondansetron HCl (Zofran) 4 mg IV Q4H PRN PRN Reason: Nausea And Vomiting Last Admin: 06/18/19 19:23 Dose: 4 mg Documented by: Zolpidem Tartrate (Ambien) 5 mg PO QHS PRN PRN Reason: Sleep Last Admin: 06/21/19 22:23 Dose: 5 mg Documented by: - Vital Signs Vital signs: Vital Signs Pulse BP 97 H 182/92 06/14/19 14:38 06/14/19 14:38 Temp Pulse Resp BP Pulse Ox 97.4 F L 74 16 132/68 98 06/21/19 20:01 06/21/19 22:19 06/21/19 20:01 06/21/19 23:00 06/21/19 20:10 Results Result Diagrams: 06/14/19 16:10 06/14/19 16:10 All other labs normal.
[2019-06-22] MEDS: LABETALOL 200 MG TAB PO SCH ×2 (10:30→21:56)
[2019-06-22] MEDS: DOCUSATE SODIUM 100 MG CAP PO SCH ×2 (10:30→22:00)
[2019-06-22] MEDS: ASPIRIN 81 MG TAB CHEW PO SCH (10:31)
[2019-06-22] MEDS: BETAMET ACET/BETAMET NA PH 6 MG/ML INJ 5 ML MDV IM SCH (20:05)
[2019-06-22] MEDS: ZOLPIDEM 5 MG TAB PO PRN (21:57)
[2019-06-23] MEDS: ASPIRIN 81 MG TAB CHEW PO SCH (10:45)
[2019-06-23] MEDS: LABETALOL 200 MG TAB PO SCH ×2 (10:46→22:06)
--- NOTE | 2019-06-23 14:09 | Consultation ---
History of Present Illness Consult date: 06/23/19 Requesting physician: GAIL AGUIRRE History of present illness: [facility] MFM 06/23/19 Reviewed options with patient for LASER of Connecting vessels with Dr. Goldsmith - Surgeon in [place] Explained risks and benefits of LASER Laser Therapy: This surgical approach utilizes an operative fetoscope to deliver laser energy that then seals off the offending blood vessels on the surface of the common placenta. Because the vascular connections between the two fetuses are sealed, no further blood exchange between the fetuses takes place. It has been theorized that elimination of the vascular communications may decrease or prevent harm to the surviving twin in the case of the demise of one twin. Conference in [facility] and he is now receptive to LASER I will try to complete referral forms and assist with further evaluation and management with Dr. Goldsmith [facility] 06/19/19 Twin A (IUGR) - Cord Doppler - AEDF - MVP at 2.34cm - BPP 6/8 (-2 breathing ) Twin B - Cord doppler at 4.2 and MVP at 3.8 cm - BPP 8/8 BP - 132/68 Abd obese nt no RUQ Pain Ext NT no edema DTR / no clonus Assessment: - [place]/Di Twin IUP at 23 6/7 weeks - Selective IUGR Twin A and AEDF ( 06/19/19 BPP 6/8) -Twin B - EFW at 56% (06/19/19 BPP 8/8) - CHTN vs GHTN- 24H urine 330 mg - Preeclampsia hx at 32 weeks - Blood Pressures in 130's-150's/70's-100's- Labetalol 200mg BID Recommendations: 1. See above 2. [place] and [facility] now interested in LASER with Dr. Goldsmith in [place] 3. Will try to assist in completing referral - Steroid complete -Cord dopplers and Venous Dopplers of cord with DV if possible On Wednesday/Wednesday/Fridays for and MVP's and check bladder Twin A and B (once 26 weeks would add BPP's) - High risk for demise of Twin A - This could adversely effect Twin B - (Neurological Insult) - Reviewed by both [facility] and NICU -Poor prognosis and increase risk for both neurological and physical handicaps if born at 23 - 24 weeks - PIH labs q week while in house -Will continue to monitor closely - Continue Labetalol 200 BID - Low Dose Aspirin once daily. Past History Past History - Obstetrical History : 3 Medications and Allergies Allergies Allergy/AdvReac Type Severity Reaction Status Date / Time No Known Allergies Allergy Unverified 06/14/19 15:26 Home Medications Medication Instructions Recorded Confirmed Last Taken Type Methyldopa [Aldomet] 250 mg PO BID 06/15/19 06/15/19 06/14/19 08:00 History Vitamin 1 tab PO DAILY 06/15/19 06/15/19 Unknown History Zofran ODT TAB 4 mg PO TID 06/15/19 06/15/19 06/14/19 08:00 History Active Meds: Active Medications Acetaminophen (Tylenol) 650 mg PO Q6H PRN PRN Reason: Pain, Mild (1-3) Last Admin: 06/15/19 16:39 Dose: 650 mg Documented by: Aspirin (Baby Aspirin) 81 mg PO QDAY [facility] Last Admin: 06/23/19 10:45 Dose: 81 mg Documented by: Docusate Sodium (Colace) 100 mg PO BID [facility] Last Admin: 06/22/19 22:00 Dose: Not Given Documented by: Hydralazine HCl (Apresoline) 10 mg IV Q30MIN PRN PRN Reason: elevated B/p Last Admin: 06/14/19 16:57 Dose: 10 mg Documented by: Lactated Ringer's (Lactated Ringers) 1,000 mls @ 125 mls/hr IV DIRECT [facility] Last Infusion: 06/20/19 23:37 Dose: 0 mls/hr Documented by: Magnesium Sulfate (Magnesium Sulfate 40gm/1000ml) 40 gm in 1,000 mls @ 50 mls/hr IV DIRECT [facility] Last Infusion: 06/15/19 17:35 Dose: 0 gm/hr, 0 mls/hr Documented by: Labetalol HCl (Labetalol) 200 mg PO BID [facility] Last Admin: 06/23/19 10:46 Dose: 200 mg Documented by: Ondansetron HCl (Zofran) 4 mg IV Q4H PRN PRN Reason: Nausea And Vomiting Last Admin: 06/18/19 19:23 Dose: 4 mg Documented by: Zolpidem Tartrate (Ambien) 5 mg PO QHS PRN PRN Reason: Sleep Last Admin: 06/22/19 21:57 Dose: 5 mg Documented by: - Vital Signs Vital signs: Vital Signs Pulse BP 97 H 182/92 06/14/19 14:38 06/14/19 14:38 Temp Pulse Resp BP Pulse Ox 98.0 F 79 18 158/99 100 06/23/19 12:18 06/23/19 12:18 06/23/19 12:18 06/23/19 12:18 06/23/19 12:18 Results Result Diagrams: 06/14/19 16:10 06/14/19 16:10 All other labs normal.
--- NOTE | 2019-06-23 18:02 | Ultrasound Report ---
LIMITED OBSTETRIC ULTRASOUND WITH BIOPHYSICAL PROFILE AND UMBILICAL ARTERY DOPPLER HISTORY: Assess well-being, twin . Clinical gestational age 24 weeks 0 days. COMPARISON: OB ultrasound 06/15/2019 and 06/19/2019 TECHNIQUE: Limited OB ultrasound performed with biophysical profile. FINDINGS: There is an intrauterine twin . Chorionicity and amnionicity as well as detailed anatomic corbett rvey are not assessed on this examination. Twin A: Position: Transverse Largest vertical pocket: 2.3 cm Heart rate: 141 bpm Umbilical artery doppler, twin A: Redemonstration of absent end-diastolic flow with pulsatility index of 3.32. This is not significantl y changed compared with examination from 06/15/2019, at which point the pulsatility index measured 3. 1. BIOPHYSICAL PROFILE TWIN A: Movement: 2 Tone: 2 Breathin Amniotic Fluid: 2 Total: 8 out of 8 Twin B: Position: Breech Largest vertical pocket: 2.9 cm Heart rate: 152 bpm Umbilical artery doppler, twin B: Normal umbilical artery waveform with average systolic to diastolic ratio of 4.3. The systolic to michelle stolic ratio was 3.8 on 06/15/2019. BIOPHYSICAL PROFILE TWIN B: Movement: 2 Tone: 2 Breathin Amniotic Fluid: 2 Total: 8 out of 8 IMPRESSION 1. Twin intrauterine . 2. Biophysical Profile 8 out of 8 for both twin A and twin B. 3. Persistent absent end-diastolic flow in twin A, with pulsatility index of 3.3 not significantly ch anged compared with prior study dated 06/15/2019. 4. Normal umbilical artery waveform in twin B. Signer Name: Radha Cloud MD Signed: 06/23/2019 5:58 PM Workstation Name: [id number]
[2019-06-23] MEDS: DOCUSATE SODIUM 100 MG CAP PO SCH ×2 (19:05→22:11)
--- NOTE | 2019-06-23 20:36 | Progress Note ---
Assessment and Plan Plan for discharge on tomorrow morning on bedrest in preparation for visit to [place]. Follow up for doppler studies on Wednesday. Subjective - Subjective Principal diagnosis: Twin IUP at 23 weeks, Pre-eclampsia Interval history: I feel fine. Pt is now 23 weeks. Pt made request to go outside. She denies headache or any other issues. BP has been stable. Patient has received steroids times 2 and was advised that she has a follow up in [place] next week. Pt had lots of questions regarding transportation, housing and planning for that consult. Pt feels like she can not get anything done in here. UI advised patient that I could discharge her home on bedrest and patient insisted that she has help coming for her children and houselhold activities. Patient reports: appetite normal, voiding normally, ambulating normally Objective - Vital Signs Latest vital signs: Vital Signs Temp Pulse Resp BP BP Pulse Ox 06/23/19 20:01 79 147/92 06/23/19 16:22 98.5 F 77 18 142/70 98 06/23/19 16:21 70 142/70 97 06/23/19 12:18 98.0 F 79 18 158/99 100 06/23/19 12:17 88 158/99 06/23/19 12:16 82 98 06/23/19 10:46 97 H 157/87 06/23/19 07:53 98.2 F 85 18 134/69 98 06/23/19 07:52 77 134/69 06/23/19 07:51 74 97 06/23/19 03:49 98.3 F 86 20 139/72 06/23/19 03:48 86 139/72 06/23/19 03:47 91 H 150/82 06/22/19 23:49 98.5 F 91 H 18 132/68 06/22/19 23:47 91 H 132/68 06/22/19 21:57 81 145/88 06/22/19 21:56 81 145/88 Intake and Output 06/23/19 06/23/19 06/23/19 06:59 14:59 22:59 Intake Total 1240 120 400 Balance 1240 120 400 Intake: Oral 1240 120 400 Other: Total, Intake Amount 1000 120 400 # Voids Void 6 7 # Bowel Movements 1
--- NOTE | 2019-06-23 20:39 | Discharge Summary ---
Providers - Providers Date of Admission: 06/14/19 15:36 Date of discharge: 06/24/19 Attending physician: GAIL AGUIRRE 06/14/19 18:45 Consult to Physician [CONS] Urgent Comment: Called office at [phone] on 06/15/19 @ 1124 Consulting Provider: AURORA SHINE Physician Instructions: Reason For Exam: extreme prematurity 06/14/19 18:46 Consult to Physician [CONS] Urgent Comment: Called to NICU 06/15/19 at 1119; Dr. Curtis aware Consulting Provider: CARLOS CURTIS Physician Instructions: Reason For Exam: extreme prematurity Primary care physician: GAIL AGUIRRE Hospitalization Reason for admission: other (Preeclampsia, SEvere IUGR) Procedure details: none Hospital course: Unremearkable Condition at discharge: Fair Disposition: DC-01 TO HOME OR SELFCARE Plan - Discharge Medications Prescriptions: Labetalol [Labetalol 200mg TAB] 200 mg PO BID #60 tablet - Provider Discharge Summary Activity: routine, no sex for 6 weeks, no heavy lifting 4 weeks, no strenuous exercise Diet: routine Instructions: routine Additional instructions: [] Smoking cessation referral if applicable(refer to patient education folder for contact #) [] Refer to [facility]'s [facility] Booklet Call your doctor immediately for: * Fever > 100.5 * Heavy vaginal bleeding ( >1 pad per hour) * Severe persistent headache * Shortness of breath * Reddened, hot, painful area to leg or breast * Drainage or odor from incision. * Keep incision clean and dry at all times and follow doctor's instructions regarding bathing/showering Pt to return to [facility] on Wednesday for dopplers prior to leaving for [place] - Follow up plan Follow up: GAIL AGUIRRE MD [Primary Care Provider] - 7 Days
[2019-06-23] MEDS: ZOLPIDEM 5 MG TAB PO PRN (22:11)
[2019-06-24] MEDS: LABETALOL 200 MG TAB PO SCH (10:10)
[2019-06-24] MEDS: ASPIRIN 81 MG TAB CHEW PO SCH (10:10)
[2019-06-24 10:11] VITALS: BP 143/84
== END 2019-06-24 11:40 | disposition home or self-care (01) | DRG 831 ==
LOC: TRG 13:53 → LD 15:28 → OBSVTOIN 15:36
PROVIDERS: ADMIT Obstetrics & Gynecology; ATTEND Obstetrics & Gynecology
DX: O36.5921 Maternal care for other known or suspected poor fetal growth, second trimester, fetus 1 (principal); O11.2 Pre-existing hypertension with pre-eclampsia, second trimester; O99.212 Obesity complicating pregnancy, second trimester; E66.01 Morbid (severe) obesity due to excess calories; O30.032 Twin pregnancy, monochorionic/diamniotic, second trimester; Z3A.22 22 weeks gestation of pregnancy
CPT/HCPCS: 36415; 76815; 76816; 76819; 76820; 80053; 81001; 82565; 82570; 83615; 83735; 84156; 84450; 84460; 84550; 85027; 86850; 86900; 86901; 90686; G0378; J0360; J0702; J2405; J3475; J7120

== ENCOUNTER 2019-07-12 18:57 | Outpatient (CLI) | payer OTHER ==
[2019-07-12 20:28] VITALS: BP 140/71
[2019-07-12 20:59] LABS: Alanine Aminotransferase 17 units/L (7-56); Albumin 3.4 g/dL (3.9-5); BUN/Creatinine Ratio 16; Blood Urea Nitrogen 8 mg/dL (7-17); Calcium 9.3 mg/dL (8.4-10.2); Hemolysis Index 13; Uric Acid 4.2 mg/dL (3.5-7.6)
[2019-07-12 21:00] LABS: Hematocrit 31.2 % (30.3-42.9); Hemoglobin 10.7 gm/dl (10.1-14.3); Mean Corpuscular HGB Conc 34 % (30-34); Mean Corpuscular Volume 85 fl (79-97); Platelet Count 231 K/mm3 (140-440); Red Blood Count 3.66 M/mm3 (3.65-5.03)
== END 2019-07-12 21:29 | disposition home or self-care (01) ==
LOC: TRG 18:57
PROVIDERS: ATTEND Obstetrics & Gynecology
DX: O47.02 False labor before 37 completed weeks of gestation, second trimester (principal); O99.332 Smoking (tobacco) complicating pregnancy, second trimester; Z3A.26 26 weeks gestation of pregnancy
CPT/HCPCS: 36415; 80053; 84156; 84550; 85027

== ENCOUNTER 2019-07-20 17:18 | Inpatient (IN) | payer OTHER ==
[2019-07-20] MEDS ORDERED: BETAMET ACET/BETAMET NA PH 6 MG/ML INJ 5 ML MDV IM ONE (18:08)
--- NOTE | 2019-07-20 19:42 | Ultrasound Report ---
ULTRASOUND OBSTETRIC LIMITED INDICATION / CLINICAL INFORMATION: LOW QUYEN ON TWIN A, LEAKING FLUID. Clinical Gestational Age (GA): 27 weeks 6 days TECHNIQUE: Transabdominal. COMPARISON: Obstetrical ultrasound 06/23/2019 FINDINGS: There is a twin intrauterine . Chorionicity and amnionicity as well as detailed anatomic phoebe vey are not assessed on this examination. Limited ultrasound was performed for amniotic fluid assessment. The largest vertical pocket in twin A is slightly decreased, measuring 1.7 cm. The largest vertical pocket in twin B is normal, measuring 2.8 cm. Twin A heart rate measures 152 bpm, and twin B heart rate measures 137 bpm. IMPRESSION: 1. Limited obstetric ultrasound demonstrates a twin intrauterine with slightly decreased fl uid in twin A, with the largest vertical pocket measuring 1.7 cm. Twin B demonstrates normal amniotic fluid, with largest vertical pocket measuring 2.8 cm. Signer Name: Radha Cloud MD Signed: 07/20/2019 7:37 PM Workstation Name: [id number]
[2019-07-20] MEDS ORDERED: ZOLPIDEM 5 MG TAB PO ONE (20:55)
[2019-07-20] MEDS ORDERED: ACETAMINOPHEN 325 MG TAB PO PRN (20:55)
[2019-07-20] MEDS ORDERED: hydrALAZINE 20 MG/1 ML INJ IV ONE (20:55)
[2019-07-20] MEDS ORDERED: LACTATED RINGERS 500 ML IV ONE (21:24)
[2019-07-20] MEDS ORDERED: LACTATED RINGERS 1,000 ML ONE (21:33)
[2019-07-20 22:05] LABS: Basophils % (Auto) 0.3 % (0.0-1.8); Eosinophils # (Auto) 0.1 K/mm3 (0.0-0.4); Hematocrit 32.3 % (30.3-42.9); Lymphocytes # (Auto) 1.5 K/mm3 (1.2-5.4); Lymphocytes % (Auto) 20.1 % (13.4-35.0); Mean Corpuscular HGB Conc 34 % (30-34); Mean Corpuscular Volume 84 fl (79-97); Monocytes # (Auto) 0.4 K/mm3 (0.0-0.8); Monocytes % (Auto) 5.2 % (0.0-7.3); Red Blood Count 3.84 M/mm3 (3.65-5.03); Red Cell Distribution Width 14.9 % (13.2-15.2)
[2019-07-20 22:06] LABS: Platelet Count 258 K/mm3 (140-440)
--- NOTE | 2019-07-21 07:24 | History and Physical Report ---
History of Present Illness Date of examination: 07/20/19 Date of admission: 07/20/2019 Chief complaint: i'M LEAKING FLUID History of present illness: PATIENT IS A 29 YEAR OLD WITH A TWIN IUP AT 28 WEEKS WHO PRESENTS WITH COMPLAINT OF LEAKAGE OF FLUID. PT'S COURSE HAS BEEN COMPLICATED BY SIUGR OF TWIN A AND LASER ABLATION THERAPY FOR SEPARATION OF BLOOD FLOW WHICH WAS VERY SUCCESSFUL. HER COURSE HAS ALSO BEEN COMPLICATED BY CHRONIC HYPERTENSION FOR WHICH SHE IS ON LABETALOL AND NIFIDEPINE. Past History Past Medical History: hypertension Past Surgical History: section Family/Genetic History: none Social history: - Obstetrical History Expected Date of Delivery: 10/13/19 Actual Gestation: 28 Week(s) 0 Day(s) : 3 Number of Living Children: 3 Medications and Allergies Allergies Allergy/AdvReac Type Severity Reaction Status Date / Time No Known Allergies Allergy Unverified 06/14/19 15:26 Home Medications Medication Instructions Recorded Confirmed Last Taken Type Vitamin 1 tab PO DAILY 06/15/19 07/20/19 07/19/19 08:00 History 1 Zofran ODT TAB 4 mg PO TID 06/15/19 07/20/19 06/14/19 08:00 History NIFEdipine [Nifedipine ER] 30 mg PO ONCE 07/20/19 07/20/19 07/20/19 17:00 Histo ry labetaloL [Labetalol 200mg TAB] 300 mg PO TID 07/20/19 07/20/19 07/20/19 16:30 History 1 Active Meds: Active Medications Acetaminophen (Tylenol) 650 mg PO Q4H PRN PRN Reason: Pain, Mild (1-3) Lactated Ringer's (Lactated Ringers) 1,000 mls @ 125 mls/hr IV DIRECT [facility] Labetalol HCl (Labetalol) 300 mg PO TID [facility] Last Admin: 07/20/19 21:14 Dose: 300 mg Documented by: Zolpidem Tartrate (Ambien) 5 mg PO QHS PRN PRN Reason: Sleep Review of Systems All systems: negative Genitourinary: leakage of fluid - Vital Signs Vital signs: Vital Signs Pulse BP 92 H 175/104 07/20/19 17:57 07/20/19 17:57 Temp Pulse Resp BP Pulse Ox 98 F 97 H 143/83 100 07/20/19 18:19 07/21/19 06:36 07/21/19 06:36 07/20/19 22:01 - Physical Exam Breasts: Cardiovascular: Regular rate, Normal S1, Normal S2 Lungs: Positive: Clear to auscultation, Normal air movement Abdomen: Positive: normal appearance, soft, normal bowel sounds. Negative: distention, tenderness Genitourinary (Female): Positive: normal external genitalia, normal perenium Vulva: both: normal Vagina: Positive: normal moisture. Negative: discharge Cervix: Negative: lesion, discharge Uterus: Positive: normal size, normal contour Adnexa: both: normal Anus/Rectum: Positive: normal perianal skin, heme negative. Negative: rectal mass, hemorrhoids Extremities: Deep Tendon Reflex Grade: Normal +2 - Obstetrical FHR: auscultation normal Cervical Dilatation: 0 Results Result Diagrams: 07/20/19 21:50 Abnormal lab results 07/20/19 Range/Units 21:50 Seg Neutrophils % 73.4 H (40.0-70.0) % All other labs normal. Assessment and Plan TWIN IUP AT 28 WEEKS WHO PRESENTS AT THE RECOMMENDATION OF [facility] AND DUE TO LOF SHE WAS ADVISED TO PRESENT ON WEDNESDAY, HOWEVER SHE DID NOT PRESENT ON THAT DAY AND WAITED AN ADDITIONAL DAY. WILL NOW ADMIT FOR MONITORING FOR AEDF OF TWIN A, ALONG WITH SELECTIVE IUGR.
--- NOTE | 2019-07-21 12:44 | Consultation ---
History of Present Illness Consult date: 07/21/19 Requesting physician: GAIL AGUIRRE Reason for consult: PROM History of present illness: patient is 011 @ 28 weeks with SUELLEN 10/13/19 [place] [facility] twins gestation s/p laser ablation with IUGR baby A and AEDF that pressented because she thought that she has LOF, but has also been having urinary incontinence when she laughs; further complicated by laser ablation in [place] and IUGR twin A Past History Past Medical History: hypertension Past Surgical History: section Family/Genetic History: none - Obstetrical History Expected Date of Delivery: 10/13/19 Actual Gestation: 28 Week(s) 0 Day(s) : 3 Para: 2 Number of Pregnancies: 1 Medications and Allergies Allergies Allergy/AdvReac Type Severity Reaction Status Date / Time No Known Allergies Allergy Unverified 06/14/19 15:26 Home Medications Medication Instructions Recorded Confirmed Last Taken Type Vitamin 1 tab PO DAILY 06/15/19 07/20/19 07/19/19 08:00 History 1 Zofran ODT TAB 4 mg PO TID 06/15/19 07/20/19 06/14/19 08:00 History NIFEdipine [Nifedipine ER] 30 mg PO ONCE 07/20/19 07/20/19 07/20/19 17:00 History labetaloL [Labetalol 200mg TAB] 300 mg PO TID 07/20/19 07/20/19 07/20/19 16:30 History 1 Active Meds: Active Medications Acetaminophen (Tylenol) 650 mg PO Q4H PRN PRN Reason: Pain, Mild (1-3) Lactated Ringer's (Lactated Ringers) 1,000 mls @ 125 mls/hr IV DIRECT [facility] Labetalol HCl (Labetalol) 300 mg PO TID [facility] Last Admin: 07/21/19 09:37 Dose: 300 mg Documented by: Zolpidem Tartrate (Ambien) 5 mg PO QHS PRN PRN Reason: Sleep Review of Systems Constitutional: no fever, no chills, no sweats Eyes: no blurred vision Cardiovascular: no chest pain Respiratory: no cough, no shortness of breath, no dyspnea on exertion Gastrointestinal: no abdominal pain, no nausea - Vital Signs Vital signs: Vital Signs Pulse BP 92 H 175/104 07/20/19 17:57 07/20/19 17:57 Temp Pulse Resp BP Pulse Ox 98.7 F 88 144/79 100 07/21/19 07:38 07/21/19 11:38 07/21/19 11:38 07/20/19 22:01 - Physical Exam Cardiovascular: Regular rate Lungs: Positive: Normal air movement Abdomen: Positive: normal appearance, soft - Obstetrical FHR: category 1 FHR comments: x 2 for GA Uterine Contraction Monitor Mode: External Results Result Diagrams: 07/20/19 21:50 Abnormal lab results 07/20/19 Range/Units 21:50 Seg Neutrophils % 73.4 H (40.0-70.0) % All other labs normal. Assessment and Plan Assessment and plan 011 @ 28 weeks with SUELLEN 10/13/19 [place] Di twins gestation s/p laser ablation with IUGR baby A and AEDF, rupture RO, with MVP 1.7 in twin A - at this time patient will be admitted for monitoring - need US for EFW in twin A and B and doppler studies - repeat the beta course - would start Mag for GOLD NIB GRINDER if there are concerns on monitor - repeat the QUYEN after hydration - needs UA dopplers on MWF - needs 3x weekly QUYEN checks BPP - continuous monitoring now - contionue BP meds and checks; perform PIH labs - apparently baby A was 11 oz on the last EFW scan in our office 2 weeks ago and we need to repeat this measurement; the GA being 28 weeks is reassuring for this complicated but additionally need to check to see how many grams this baby A is now - if the baby were to Not have adequate increase in growth (ie baby not gaining any weight) with oligo and doppler changes etc we would need to consider delivery possibly soon - with any NRFHT/ cat 3 would need to deliver - if there were Reversed end diastolic flow we would also need to consider delivery - at this time the patient should remain as inpatient as she has multiple confounding factors and will likely benefit from inpatient daily monitoring - will speak with Dr Aguirre about the patient and recommendations
[2019-07-21] MEDS: ONDANSETRON 4 MG/2 ML INJ IV SCH (20:33)
[2019-07-21] MEDS: ZOLPIDEM 5 MG TAB PO PRN (23:47)
--- NOTE | 2019-07-22 00:32 | Ultrasound Report ---
ULTRASOUND OBSTETRIC Indication: Pelvic and abdominal pain COMPARISON: 06/23/2019. Findings: Twin A There is a twin intrauterine . BPD = 5.3 cm = 22 weeks, 1 day(s). Head circumference = 19.5 cm = 21 weeks, 5 day(s). Abdominal circumference = 18.0 cm = 22 weeks, 6 day(s). Femur length = 3.5 cm = 20 weeks, 6 day(s). Overall estimated sonographic age = 21 weeks, 6 day(s). heart rate is 122 beats per minute. Estimated weight is 465 grams position is transverse. Cervix appears closed. movement is present. Placenta is anterior and grade 0 . Amniotic fluid volume 20 and largest vertical pocket measuring 1.8 cm. Maternal adnexa appear normal. Resistive index measures 0.94 with a pulsatility index measuring 1.8. Twin B BPD = 6.7 cm = 27 weeks, 1 day(s). Head circumference = 25 cm = 27 weeks, 1 day(s). Abdominal circumference = 23 cm = 27 weeks, 5 day(s). Femur length = 5.4 cm = 28 weeks, 5 day(s). Overall estimated sonographic age = 27 weeks, 5 day(s). heart rate is 142 beats per minute. Estimated weight is 1148 grams position is cephalic. Cervix appears closed. movement is present. Placenta is anterior and grade 0 . Amniotic fluid volume appears normal. Maternal adnexa appear normal. Normal resistive index measuring 0.71. Normal SD ratio average of 3.4 Impression: Normal umbilical cord Doppler waveform of twin B with persistently abnormal umbilical cord Doppler of twin A, similar to multiple prior exams including 06/23/2019 with the resistive index average measuri ng 0.94 and the pulsatility index now measuring 1.8 and SD ratio average of 16.6 See above findings. Signer Name: Kyle Quiros MD Signed: 07/22/2019 12:27 AM Workstation Name: [id number]
[2019-07-22] MEDS: NIFEdipine XL 30 MG TAB PO SCH (10:47)
[2019-07-22] MEDS: LACTATED RINGERS 1,000 ML IV SCH (11:02)
--- NOTE | 2019-07-22 11:27 | Progress Note ---
Assessment and Plan HD 2 for this patient with SIUGR and oligohydramnios of twin A. According to dopplers EFW of twin A is now 465 grams and there has been no change or worsening of umbilical dopplers. Will continue inpatient monitoring for now. Recheck dopplers on Wednesday. Subjective - Subjective Date of service: 07/22/19 Principal diagnosis: Twin IUP, Selective IUGR Interval history: PATIENT IS A 29 YEAR OLD WITH A TWIN IUP AT 28 WEEKS WHO PRESENTS WITH COMPLAINT OF LEAKAGE OF FLUID. PT'S COURSE HAS BEEN COMPLICATED BY SIUGR OF TWIN A AND LASER ABLATION THERAPY FOR SEPARATION OF BLOOD FLOW WHICH WAS VERY SUCCESSFUL. HER COURSE HAS ALSO BEEN COMPLICATED BY CHRONIC HYPERTENSION FOR WHICH SHE IS ON LABETALOL AND NIFIDEPINE. Patient reports: movement normal Objective - Vital Signs Vital Signs: Vital Signs - 12hr 07/21/19 07/22/19 07/22/19 23:50 06:51 08:22 Pulse Rate 99 H 68 69 Blood Pressure 134/67 147/78 180/85 07/22/19 07/22/19 07/22/19 08:30 08:45 08:50 Pulse Rate 68 68 73 Blood Pressure 157/83 157/83 146/70 07/22/19 09:53 Pulse Rate 81 Blood Pressure 143/83 - Exam Breasts: deferred Cardiovascular: Regular rate, Normal S1, Normal S2 Lungs: Clear to auscultation, Normal air movement Abdomen: Present: normal appearance, soft, normal bowel sounds Uterus: Present: normal, fundal height above umbilicus FHR: auscultation normal Cervical Dilatation: 0 - Labs Labs: Abnormal Labs 07/20/19 21:50 Seg Neutrophils % 73.4 H
[2019-07-22] MEDS: ONDANSETRON 4 MG/2 ML INJ IV SCH (17:52)
[2019-07-22] MEDS ORDERED: BUTORPHANOL 2 MG/1 ML INJ IV ONE (22:00)
[2019-07-23] MEDS: NIFEdipine XL 30 MG TAB PO SCH (09:58)
[2019-07-23] MEDS: ONDANSETRON 4 MG/2 ML INJ IV SCH (12:00)
--- NOTE | 2019-07-23 12:33 | Consultation ---
History of Present Illness Consult date: 07/23/19 Requesting physician: GAIL AGUIRRE Reason for consult: FHR abnormalities History of present illness: the patient is not doing well today because she says that she is in pain from lying in bed and does not want to be monitored any longer it has been very difficult to get both babies on the monitor so she is frustrat ed she has no LOF and no VB good FM x 2 Past History Past Medical History: hypertension Past Surgical History: section Family/Genetic History: none - Obstetrical History : 3 Medications and Allergies Allergies Allergy/AdvReac Type Severity Reaction Status Date / Time No Known Allergies Allergy Unverified 06/14/19 15:26 Home Medications Medication Instructions Recorded Confirmed Last Taken Type Vitamin 1 tab PO DAILY 06/15/19 07/20/19 07/19/19 08:00 History 1 Zofran ODT TAB 4 mg PO TID 06/15/19 07/20/19 06/14/19 08:00 History NIFEdipine [Nifedipine ER] 30 mg PO ONCE 07/20/19 07/20/19 07/20/19 17:00 History labetaloL [Labetalol 200mg TAB] 300 mg PO TID 07/20/19 07/20/19 07/20/19 16:30 History 1 Active Meds: Active Medications Acetaminophen (Tylenol) 650 mg PO Q4H PRN PRN Reason: Pain, Mild (1-3) Lactated Ringer's (Lactated Ringers) 1,000 mls @ 125 mls/hr IV DIRECT [facility] Last Admin: 07/22/19 11:02 Dose: 125 mls/hr Documented by: Labetalol HCl (Labetalol) 300 mg PO TID [facility] Last Admin: 07/23/19 08:23 Dose: 300 mg Documented by: Nifedipine (Procardia Xl) 30 mg PO QDAY [facility] Last Admin: 07/23/19 09:58 Dose: 30 mg Documented by: Ondansetron HCl (Zofran) 8 mg IV Q6HR [facility] Last Admin: 07/22/19 17:52 Dose: 8 mg Documented by: Zolpidem Tartrate (Ambien) 5 mg PO QHS PRN PRN Reason: Sleep Last Admin: 07/21/19 23:47 Dose: 5 mg Documented by: - Vital Signs Vital signs: Vital Signs Pulse BP 92 H 175/104 11/28/19 17:57 07/20/19 17:57 Temp Pulse Resp BP Pulse Ox 98.2 F 85 18 175/101 97 07/23/19 08:22 07/23/19 12:22 07/23/19 08:22 07/23/19 12:22 07/23/19 12:21 - Obstetrical FHR comments: there is only one baby on the monitor and I cannot tell whether it is A or B but it appears reassuring Results Result Diagrams: 07/20/19 21:50 All other labs normal. 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 there are concerns on monitor - needs UA dopplers on MWF - needs 3x weekly QUYEN checks BPP - continuous monitoring now - contionue BP meds and checks; perform PIH labs - apparently baby A was 11 oz on the last EFW scan in our office 2 weeks ago and we need to repeat this measurement; the GA being 28 weeks is reassuring for this complicated but additionally need to check to see how many grams this baby A is now - with any NRFHT/ cat 3 would need to deliver - if there were Reversed end diastolic flow we would also need to consider d elivery - at this time the patient should remain as inpatient as she has multiple confounding factors and will likely benefit from inpatient daily monitoring Note: I spoke with the patient regarding that there has been difficulty in monitoring baby A and that we would need to concitnue to try and monitor this baby so that we could get a clear picture of what was going on. the patient says that "we are Not getting the information anyways so why is she here" ; I stated that she is in a very diffciult clinical scenario where we are worried about baby A and just want to get the best information - at this time baby A is also still very small and even if delivered would have potnetial for poor outcome which I voiced and we would have to confront knowing this as well if there were a babd tracing in baby A. The patient states that she probably like to go home and I told her I understand tthat this is a difficult situiation and that it is hard to stay on monitor and try to be adjusted but that we had to try if she wants everything done for baby. She understands that there is risk for IUFD in baby A and says likely she will leave AMA/sign out and that she would come to her appts in office MWF. Will speak with Dr aguirre about the visit with patient today.
--- NOTE | 2019-07-23 13:55 | Ultrasound Report ---
Limited OB Ultrasound HISTORY: Here to evaluate position. TECHNIQUE: Grayscale and color Doppler imaging performed. COMPARISON: Yesterday FINDINGS: Baby A: Cephalic presentation. Heart rate of 141 bpm. Baby B: Breech presentation. Heart rate of 147 bpm. IMPRESSION: positioning and heart rates as above. Signer Name: Juan Pablo Crowe MD Signed: 07/23/2019 1:50 PM Workstation Name: [id number]
--- NOTE | 2019-07-23 14:35 | Progress Note ---
Assessment and Plan HD 3 for this patient with SIUGR and oligohydramnios of twin A. According to dopplers EFW of twin A is now 465 grams and there has been no change or worsening of umbilical dopplers. Will continue inpatient monitoring for now. Recheck dopplers on Wednesday. As stated, patient is now angry and frustrated that she has to stay in house, in addition to the fact that the babies are very difficult to trace. I spoke to the patient and her at length and essentially reiterated what was discussed with Dr Coyle. 1. I advised patient that the team was proceeding according to the patient's wishes to "save both babies" despite being advised of the likely poor outcome of Twin A. This conversation was had 6 weeks ago I advised patient that if that is no longer her plan that she should advise the team so that we can change the plan of care. 2. I advised patient that delivering infants at 28 weeks without strong indication is not an option 3. I advised patient that if she decides not to stay in house that she would need to sign AMA form to leave hospital and that she could still follow up on [facility] with [facility] for doppler checks. I explained to patient that this is a very complicated situation however, I can not go against the advice of MFM and discharge her. Pt to confer with and let us know her plans. Subjective - Subjective Date of service: 07/23/19 Principal diagnosis: Twin IUP, Selective IUGR Interval history: PATIENT IS A 29 YEAR OLD WITH A TWIN IUP AT 28 WEEKS WHO PRESENTS WITH COMPLAINT OF LEAKAGE OF FLUID. PT'S COURSE HAS BEEN COMPLICATED BY SIUGR OF TWIN A AND LASER ABLATION THERAPY FOR SEPARATION OF BLOOD FLOW WHICH WAS VERY SUCCESSFUL. HER COURSE HAS ALSO BEEN COMPLICATED BY CHRONIC HYPERTENSION FOR WHICH SHE IS ON LABETALOL AND NIFIDEPINE. PATIENT IS NOW VERY FRUSTRATED WITH HAVING TO STAY IN BED FOR MONITORING STATING THAT HER BACK HURTS AND SHE "CAN'T TAKE IT ANYMORE". Patient reports: movement normal Objective - Vital Signs Vital Signs: Vital Signs - 12hr 07/23/19 07/23/19 07/23/19 08:21 08:22 08:23 Temperature 98.2 F Pulse Rate 74 76 76 Respiratory 18 Rate Blood Pressure 144/84 144/84 Blood Pressure 144/84 [Right] O2 Sat by Pulse 94 98 Oximetry 07/23/19 07/23/19 07/23/19 09:58 12:21 12:22 Temperature 97.8 F Pulse Rate 83 86 85 Respiratory 18 Rate Blood Pressure 146/73 175/101 Blood Pressure [Right] O2 Sat by Pulse 97 99 Oximetry 07/23/19 07/23/19 07/23/19 12:36 13:17 13:54 Temperature Pulse Rate 74 79 85 Respiratory Rate Blood Pressure 168/89 169/97 132/68 Blood Pressure [Right] O2 Sat by Pulse Oximetry 07/23/19 07/23/19 14:00 14:04 Temperature Pulse Rate 85 Respiratory 18 Rate Blood Pressure 132/68 Blood Pressure [Right] O2 Sat by Pulse Oximetry - Exam Breasts: deferred Cardiovascular: Regular rate, Normal S1, Normal S2 Lungs: Clear to auscultation, Normal air movement Abdomen: Present: normal appearance, soft, normal bowel sounds Vulva: both: normal Uterus: Present: normal, firm FHR: auscultation normal Uterine Contraction Pattern: Absent - Labs Labs: Abnormal Labs 07/20/19 21:50 Seg Neutrophils % 73.4 H
[2019-07-23] MEDS: diphenhydrAMINE 50 MG CAP PO SCH (19:31)
[2019-07-24] MEDS: NIFEdipine XL 30 MG TAB PO SCH (10:18)
[2019-07-24] MEDS: diphenhydrAMINE 50 MG CAP PO SCH (10:18)
--- NOTE | 2019-07-24 14:32 | Consultation ---
History of Present Illness Consult date: 07/24/19 Requesting physician: GAIL AGUIRRE History of present illness: Initialization Date: 07/23/19 12:28 011 at 28 2/7 weeks with SUELLEN 10/13/19 [place] twins gestation s/p laser ablation with IUGR baby A and AEDF, rupture RO, with MVP 1.8 in twin A Per nurse US 07/21/19 Twin A MVP at 1.7 cm and Twin B MVP at 2.8 cm\ US repeated today 07/24/19 - Results Pending EFM Twin A 135 Pos LTV EFM Twin B 150's Pos LTV Past History Past Medical History: hypertension Past Surgical History: section Family/Genetic History: none - Obstetrical History : 3 Medications and Allergies Allergies Allergy/AdvReac Type Severity Reaction Status Date / Time No Known Allergies Allergy Unverified 06/14/19 15:26 Home Medications Medication Instructions Recorded Confirmed Last Taken Type Vitamin 1 tab PO DAILY 06/15/19 07/20/19 07/19/19 08:00 History 1 Zofran ODT TAB 4 mg PO TID 06/15/19 07/20/19 06/14/19 08:00 History NIFEdipine [Nifedipine ER] 30 mg PO ONCE 07/20/19 07/20/19 07/20/19 17:00 History labetaloL [Labetalol 200mg TAB] 300 mg PO TID 07/20/19 07/20/19 07/20/19 16:30 History 1 Active Meds: Active Medications Acetaminophen (Tylenol) 650 mg PO Q4H PRN PRN Reason: Pain, Mild (1-3) Lactated Ringer's (Lactated Ringers) 1,000 mls @ 125 mls/hr IV DIRECT [facility] Last Admin: 07/22/19 11:02 Dose: 125 mls/hr Documented by: Labetalol HCl (Labetalol) 300 mg PO TID [facility] Last Admin: 07/23/19 08:23 Dose: 300 mg Documented by: Nifedipine (Procardia Xl) 30 mg PO QDAY [facility] Last Admin: 07/23/19 09:58 Dose: 30 mg Documented by: Ondansetron HCl (Zofran) 8 mg IV Q6HR [facility] Last Admin: 07/22/19 17:52 Dose: 8 mg Documented by: Zolpidem Tartrate (Ambien) 5 mg PO QHS PRN PRN Reason: Sleep Last Admin: 07/21/19 23:47 Dose: 5 mg Documented by: Past History Past Medical History: hypertension Past Surgical History: section Family/Genetic History: none - Obstetrical History : 3 Medications and Allergies Allergies Allergy/AdvReac Type Severity Reaction Status Date / Time No Known Allergies Allergy Unverified 06/14/19 15:26 Home Medications Medication Instructions Recorded Confirmed Last Taken Type Vitamin 1 tab PO DAILY 06/15/19 07/20/19 07/19/19 08:00 History 1 Zofran ODT TAB 4 mg PO TID 06/15/19 07/20/19 06/14/19 08:00 History NIFEdipine [Nifedipine ER] 30 mg PO ONCE 07/20/19 07/20/19 07/20/19 17:00 History labetaloL [Labetalol 200mg TAB] 300 mg PO TID 07/20/19 07/20/19 07/20/19 16:30 History 1 Active Meds: Active Medications Acetaminophen (Tylenol) 650 mg PO Q4H PRN PRN Reason: Pain, Mild (1-3) Last Admin: 07/23/19 14:04 Dose: 650 mg Documented by: Diphenhydramine HCl (Benadryl) 50 mg PO DAILY [facility] Last Admin: 07/24/19 10:18 Dose: 50 mg Documented by: Lactated Ringer's (Lactated Ringers) 1,000 mls @ 125 mls/hr IV DIRECT [facility] Last Admin: 07/22/19 11:02 Dose: 125 mls/hr Documented by: Labetalol HCl (Labetalol) 300 mg PO TID [facility] Last Admin: 07/24/19 09:04 Dose: 300 mg Documented by: Nifedipine (Procardia Xl) 30 mg PO QDAY [facility] Last Admin: 07/24/19 10:18 Dose: 30 mg Documented by: Ondansetron HCl (Zofran) 8 mg IV Q6HR [facility] Last Admin: 07/23/19 12:00 Dose: Not Given Documented by: Zolpidem Tartrate (Ambien) 5 mg PO QHS PRN PRN Reason: Sleep Last Admin: 07/21/19 23:47 Dose: 5 mg Documented by: - Vital Signs Vital signs: Vital Signs Pulse BP 92 H 175/104 07/20/19 17:57 07/20/19 17:57 Temp Pulse Resp BP Pulse Ox 98.9 F 87 18 141/78 98 07/24/19 09:01 07/24/19 13:54 07/24/19 09:01 07/24/19 13:54 07/24/19 13:54 Results Result Diagrams: 07/20/19 21:50 All other labs normal. Assessment and Plan Assessment and Plan Assessment and plan 011 @ 28.1 weeks with SUELLEN 10/13/19 [place] twins gestation s/p laser ablation with IUGR baby A and AEDF, rupture RO, with MVP 1.8 in twin A CHTN (last BP 141/78 at 13:55 and 160/88 9:01 am ) 07/12/19 Labs AST /ALT 24 Hour urine Prot at 476 mg - at this time patient will be admitted for monitoring and should remain as inpatient to continue to try and monitor despite difficulty - EFW in baby A is 465 g so the baby is at limit of viability which was explaiend to the patient, still with AEDF - would start Mag for [place] [place] if there are concerns on monitor - needs UA dopplers on MWF - needs 3x weekly QUYEN checks BPP - continuous monitoring now - continues BP meds and checks; perform PIH labs - Please obtain CMP if not done - Please obtain 1 Hour GTT if not done - Would obtain EFW US this week - - apparently baby A was 11 oz on the last EFW scan in our office 2 weeks ago and we need to repeat this measurement; the GA being 28 weeks is reassuring for this complicated but additionally need to check to see how many grams this baby A is now - with any NRFHT/ cat 3 would need to deliver - if there were Reversed end diastolic flow we would also need to consider delivery - at this time the patient should remain as inpatient as she has multiple confounding factors and will likely benefit from inpatient daily monitoring See Prior Notes patient frustrated and considering signing out AMA Providers have explained importance of close A-P Surveillance and parameters for delivery
--- NOTE | 2019-07-24 15:38 | Ultrasound Report ---
ULTRASOUND OB LIMITED ULTRASOUND OB BIOPHYSICAL PROFILE ULTRASOUND OB BIOPHYSICAL PROFILE ADD EXAM ULTRASOUND OB VELOCIMETRY UMBILICAL ARTERY ULTRASOUND OB VELOCIMETRY UMBILICAL ARTERY HISTORY: Evaluate heart tones in position. TECHNIQUE: Transabdominal ultrasound with color and spectral Doppler interrogation. FINDINGS: Twin A is in cephalic position with heart rate measuring 141 bpm. Biophysical profile score is 6/8 with amniotic fluid scoring 0. The average resistive index measures 0.62. The average S/D ratio m easures 2.78. Twin B is in breech position with heart rate measuring 147 bpm. Biophysical profile score is 8/8. The average resistive index measures 0.69. The average S/D ratio measures 3.3. Signer Name: Ian Cm Jr, MD Signed: 07/24/2019 3:34 PM Workstation Name: [id number]
[2019-07-24] MEDS ORDERED: ceFAZolin/STERILE WATER 2 GM/20 ML SYRINGE IV ONE (20:15)
[2019-07-24] MEDS: ZOLPIDEM 5 MG TAB PO PRN (22:09)
[2019-07-25] MEDS: ONDANSETRON 4 MG/2 ML INJ IV SCH (06:18)
[2019-07-25] MEDS: diphenhydrAMINE 50 MG CAP PO SCH (10:57)
[2019-07-25] MEDS: NIFEdipine XL 30 MG TAB PO SCH (10:58)
--- NOTE | 2019-07-25 13:23 | Progress Note ---
Assessment and Plan Assessment and plan 011 @ 28.2 weeks with SUELLEN 10/13/19 [place] twins gestation s/p laser ablation with IUGR baby A and AEDF, Oligohydramnios Twin A CHTN; BPs 140's/80's-90's AST /ALT 24 Hour urine Prot at 476 mg - should remain as inpatient, continuous monitoring - EFW in baby A is 465 g so the baby is at limit of viability which was explained to the patient previously by Dr. 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 are concerns on monitor -UA dopplers on MWF - 3x weekly QUYEN checks and BPP - continuous monitoring - continue BP meds and checks; perform PIH labs as indicated - Please obtain 1 Hour GTT if not done - Obtain EFW US this week - - apparently baby A was 11 oz on the last EFW scan in our office 2 weeks ago and we need to repeat this measurement; the GA being 28 weeks is reassuring for this complicated but additionally need to check to see how many grams this baby A is now - with any NRFHT/ cat 3 would need to deliver - Delivery recommended if there were Reversed end diastolic flow - patient should remain as inpatient as she has multiple confounding factors and will likely benefit from inpatient daily monitoring Please contact our train reservation clerk physician for questions or concerns. Providers have explained importance of close A-P Surveillance and parameters for delivery Subjective - Subjective Date of service: 07/25/19 Principal diagnosis: Twin IUP, Selective IUGR Patient reports: movement normal Objective - Vital Signs Vital Signs: Vital Signs - 12hr 07/25/19 07/25/19 07/25/19 05:10 08:44 08:51 Temperature 98.0 F Pulse Rate 104 H 103 H Respiratory Rate Blood Pressure 143/94 Blood Pressure [Right] O2 Sat by Pulse 99 Oximetry 07/25/19 07/25/19 07/25/19 10:12 10:55 10:57 Temperature 98.6 F Pulse Rate 103 H 100 H Respiratory 18 Rate Blood Pressure 142/80 142/80 Blood Pressure 144/93 [Right] O2 Sat by Pulse 99 Oximetry - Exam Cardiovascular: Regular rate Lungs: Normal air movement - Labs Labs: Abnormal Labs 07/20/19 21:50 Seg Neutrophils % 73.4 H
[2019-07-25] MEDS ORDERED: ONDANSETRON 4 MG/2 ML INJ IV PRN (22:19)
[2019-07-25] MEDS: ZOLPIDEM 5 MG TAB PO PRN (22:35)
[2019-07-26] MEDS: NIFEdipine XL 30 MG TAB PO SCH (10:05)
[2019-07-26] MEDS: FAMOTIDINE 20 MG TAB PO SCH ×2 (10:05→23:21)
[2019-07-26] MEDS: diphenhydrAMINE 50 MG CAP PO SCH (10:06)
--- NOTE | 2019-07-26 10:51 | Progress Note ---
Assessment and Plan HD 7 FOR THIS 28.4 WEEK IUP WITH TWINS AND SIUGR OF TWIN A. PT IS STABLE. WILL REPEAT TESTING ON TODAY. WOULD DELIVER FOR CHANGE IN CONDITION OF EITHER TWIN. CONTINUE CURRENT PLAN OF CARE. Subjective - Subjective Date of service: 07/26/19 Principal diagnosis: Twin IUP, Selective IUGR Interval history: PATIENT IS A 29 YEAR OLD WITH A TWIN IUP AT 28.4 WEEKS WHO PRESENTS WITH COMPLAINT OF LEAKAGE OF FLUID. PT'S COURSE HAS BEEN COMPLICATED BY SIUGR OF TWIN A AND LASER ABLATION THERAPY FOR SEPARATION OF BLOOD FLOW WHICH WAS VERY SUCCESSFUL. HER COURSE HAS ALSO BEEN COMPLICATED BY CHRONIC HYPERTENSION FOR WHICH SHE IS ON LABETALOL AND NIFIDEPINE BUT SHE HAS BEEN IN NORMAL RANGE OVER THE PAST 48 HOURS. WILL ORDER DOPPLERS AND BPP TODAY. Patient reports: movement normal Objective - Vital Signs Vital Signs: Vital Signs - 12hr 07/26/19 07/26/19 07/26/19 08:30 08:57 08:59 Temperature 98.6 F Pulse Rate 87 93 H Respiratory 18 Rate Blood Pressure 176/102 148/78 07/26/19 09:00 Temperature Pulse Rate 93 H Respiratory Rate Blood Pressure 148/78 - Exam Breasts: deferred Cardiovascular: Regular rate, Normal S1, Normal S2 Lungs: Clear to auscultation, Normal air movement Abdomen: Present: normal appearance, soft, normal bowel sounds Uterus: Present: normal, firm FHR: auscultation normal Cervical Dilatation: 0 Uterine Contraction Pattern: Absent Uterine Tone Measurement Phase: Resting - Labs Labs: Abnormal Labs 07/20/19 21:50 Seg Neutrophils % 73.4 H
--- NOTE | 2019-07-26 20:52 | Ultrasound Report ---
US OB velocimetry umbilcal art INDICATION: iugr, baby a. TECHNIQUE: Spectral Doppler imaging of the umbilical cord for twin A performed. COMPARISON: 07/24/2019. FINDINGS: Twin A shows heart rate of 1 37 bpm. There is persistent reversal of flow with pulsatility inde x average of 2.93. Signer Name: Prosper Dyson MD Signed: 07/26/2019 8:47 PM Workstation Name: [email or web address]
--- NOTE | 2019-07-26 20:55 | Ultrasound Report ---
ULTRASOUND BIOPHYSICAL PROFILE INDICATION / CLINICAL INFORMATION: twins with selective IUGR. Twin B COMPARISON: 07/24/2019 FINDINGS: BREATHING MOVEMENT = 2 GROSS BODY MOVEMENT = 2 TONE = 2 QUALITATIVE AMNIOTIC FLUID VOLUME = 2 TOTAL BIOPHYSICAL SCORE = 03/30 PRESENTATION: Breech. HEART RATE (beats per minute): 143 IMPRESSION: 1. Twin B biophysical profile = 03/30 Signer Name: Prosper Dyson MD Signed: 07/26/2019 8:51 PM Workstation Name: [id number]
--- NOTE | 2019-07-26 20:55 | Ultrasound Report ---
ULTRASOUND BIOPHYSICAL PROFILE INDICATION / CLINICAL INFORMATION: twins with selective IUGR. Twin A. COMPARISON: 07/24/2019. FINDINGS: BREATHING MOVEMENT = 2 GROSS BODY MOVEMENT = 2 TONE = 2 QUALITATIVE AMNIOTIC FLUID VOLUME = 2 TOTAL BIOPHYSICAL SCORE = 03/30 HEART RATE (beats per minute): 137 IMPRESSION: 1. Twin A biophysical profile = 03/30 Signer Name: Prosper Dyson MD Signed: 07/26/2019 8:50 PM Workstation Name: [id number]
[2019-07-26] MEDS: ZOLPIDEM 5 MG TAB PO PRN (23:20)
--- NOTE | 2019-07-27 08:43 | Ultrasound Report ---
ULTRASOUND OB UMBILICAL ARTERY TECHNIQUE: Transabdominal imaging with color and spectral Doppler interrogation. COMPARISON: 07/24/2019 COMMENT: This examination is just presented to me for interpretation. FINDINGS: Twin B heart rate measures 137 bpm. The spectral wave forms are normal and persistent. The resistive i ndex average measures 0.69. S/D ratio average measures 3.3. Signer Name: Ian Cm Jr, MD Signed: 07/27/2019 8:38 AM Workstation Name: [id number]
[2019-07-27] MEDS: NIFEdipine XL 30 MG TAB PO SCH (10:01)
[2019-07-27] MEDS: FAMOTIDINE 20 MG TAB PO SCH (10:01)
--- NOTE | 2019-07-27 13:11 | Progress Note ---
Assessment and Plan Assessment and Plan Assessment and plan 011 @ 28.1 weeks with SUELLEN 10/13/19 [place] Di twins gestation s/p laser ablation with IUGR baby A. Reversed blood flow noted on doppler study 07/26. Twin BPP-normal study CHTN (last BP 140/83 ) Plan Discussed findings with Dr Younger, recommend delivery. Dr Gregorio made aware. - Subjective - Subjective Date of service: 07/27/19 Principal diagnosis: Twin IUP, Selective IUGR Patient reports: movement normal Objective - Vital Signs Vital Signs: Vital Signs - 12hr 07/27/19 07/27/19 07/27/19 10:00 12:00 12:01 Temperature 97.5 F L Pulse Rate 90 82 87 Respiratory 20 Rate Blood Pressure 154/97 140/83 Blood Pressure 153/91 [Right] - Exam Breasts: deferred Cardiovascular: Regular rate, Normal S1, Normal S2 Lungs: Clear to auscultation, Normal air movement Abdomen: Present: normal appearance (gravid) - Labs Labs: Abnormal Labs 07/20/19 21:50 Seg Neutrophils % 73.4 H
[2019-07-27 16:02] LABS: Basophils % (Auto) 0.4 % (0.0-1.8); Eosinophils # (Auto) 0.1 K/mm3 (0.0-0.4); Eosinophils % (Auto) 2.2 % (0.0-4.3); Hematocrit 31.8 % (30.3-42.9); Hemoglobin 10.9 gm/dl (10.1-14.3); Lymphocytes # (Auto) 2.4 K/mm3 (1.2-5.4); Mean Corpuscular HGB Conc 34 % (30-34); Mean Corpuscular Volume 83 fl (79-97); Monocytes # (Auto) 0.9 K/mm3 (0.0-0.8); Monocytes % (Auto) 13.4 % (0.0-7.3); Platelet Count 294 K/mm3 (140-440); Red Blood Count 3.83 M/mm3 (3.65-5.03); Red Cell Distribution Width 15.1 % (13.2-15.2)
[2019-07-27] MEDS ORDERED: BICITRA ORAL LIQD 30ML PO ONE (16:38)
[2019-07-27] MEDS ORDERED: FAMOTIDINE 20 MG/2 ML INJ IV ONE (16:38)
[2019-07-27] MEDS ORDERED: METOCLOPRAMIDE 10 MG/2 ML INJ IV ONE (16:38)
[2019-07-27] MEDS ORDERED: ceFAZolin/Water 2 GM/20 ML 2 GM/20 ML SYRINGE IV NR (17:00)
[2019-07-27] MEDS ORDERED: OXYTOCIN 20 UNIT/1000ML DRIP 20 UNITS/1,000 ML BAG IV SCH (17:00)
[2019-07-27] MEDS ORDERED: LACTATED RINGERS 1,000 ML IV SCH (17:00)
[2019-07-27] MEDS ORDERED: BICITRA ORAL LIQD 30ML ONE (19:03)
--- NOTE | 2019-07-27 19:12 | Anesthesia Consultation ---
Anesthesia Consult and Med Hx Date of service: 07/27/19 - Airway Anesthetic Teeth Evaluation: Good ROM Head & Neck: Adequate Mental/Hyoid Distance: Adequate Mallampati Class: Class II Intubation Access Assessment: Good - Pulmonary Exam CTA: Yes - Cardiac Exam Cardiac Exam: RRR - Pre-Operative Health Status ASA Pre-Surgery Classification: ASA2 Proposed Anesthetic Plan: Spinal - Pulmonary Hx Asthma: No COPD: No Hx Pneumonia: No - Cardiovascular System Hx Hypertension: Yes (PIH) - Central Nervous System Hx Seizures: No Hx Psychiatric Problems: No - Endocrine Hx Renal Disease: No Hx End Stage Renal Disease: No Hx Hypothyroidism: No Hx Hyperthyroidism: No - Hematic Hx Anemia: No Hx Sickle Cell Disease: No - Other Systems Hx Alcohol Use: No
[2019-07-27] MEDS ORDERED: PROMETHAZINE 25 MG RECT SUPP PR PRN (19:13)
[2019-07-27] MEDS ORDERED: NALOXONE 0.4 MG/1 ML INJ IV PRN (19:13)
[2019-07-27] MEDS ORDERED: ONDANSETRON 4 MG/2 ML INJ IV PRN (19:13)
[2019-07-27] MEDS ORDERED: PROMETHAZINE 25 MG TAB PO PRN (19:13)
[2019-07-27] MEDS ORDERED: HYDROmorphone 1 MG/1 ML INJ IV PRN (19:13)
--- NOTE | 2019-07-27 19:13 | Anesthesia Day of Surgery ---
Anesthesia Day of Surgery - Day of Surgery Patient Examined: Yes Patient H&P Reviewed: Yes Patient is NPO: Yes (Full meal at 1300)
--- NOTE | 2019-07-27 19:21 | Event Note ---
Date: 07/27/19 Twin IUP at 28 weeks with new change in Twin A. Per [facility] will proceed with delivery of infants. Will prepare for with BTL.
[2019-07-27] MEDS: LACTATED RINGERS 1,000 ML IV SCH (20:01)
[2019-07-27] MEDS ORDERED: DEXMEDETOMIDINE 200 MCG/2 ML VIAL IV ONE (20:02)
[2019-07-27] MEDS ORDERED: ONDANSETRON 4 MG/2 ML INJ ONE (20:02)
[2019-07-27] MEDS ORDERED: PORACTANT ALFA 80 MG/ML (3 ML) VIAL ONE (20:31)
[2019-07-27] MEDS ORDERED: PORACTANT ALFA 80 MG/ML (1.5 ML) VIAL ONE (20:31)
[2019-07-27] MEDS ORDERED: SODIUM CHLORIDE 0.9% IRR 1,500 ML BOTTLE IR ONE (20:34)
[2019-07-27] MEDS ORDERED: WATER FOR IRRIG STERILE 1,500 ML BOTTLE IR ONE (20:34)
[2019-07-27] MEDS ORDERED: KETOROLAC 30 MG/1 ML INJ ONE (20:52)
[2019-07-27] MEDS ORDERED: MIDAZOLAM 2 MG/2 ML INJ ONE (20:59)
[2019-07-27] MEDS ORDERED: HYDROmorphone 1 MG/1 ML INJ ONE (21:04)
[2019-07-27] MEDS ORDERED: hydrALAZINE 20 MG/1 ML INJ ONE (21:41)
--- NOTE | 2019-07-27 22:03 | Post Anesthesia Evaluation ---
- Post Anesthesia Evaluation Patient Participated: Yes Airway Patent: Yes Stable Respiratory Function: Yes Nausea/Vomiting: No Temp > 96.8F: Yes Pain Manageable: Yes Adequeate Hydration: Yes Anesthesia Complications: No Block Receding Appropriately: Yes Patient on Ventilator: No
--- NOTE | 2019-07-27 22:11 | Operative Report ---
Operative Report Operative Report: The operative report for patient Jennifer Cerrato Date of service 07/27/2019 Preoperative diagnosis: Twin Intrauterine at 28 and 6 weeks 2. Severe IUGR of twin a 3. Reversal flow on twin A 4. Previous x1 5.Undesired fertility Postoperative diagnosis: Same Procedure: Primary low transverse section with myomectomy Surgeon: Dr. Padmini Gregorio EBL: 600 mL Urine output: 150 mL IV fluids: 1300 mL LR Findings: 2 viable females in the breech (twin A) and vertex (twin B ) position. Weight of twin A 468 g with Apgars 3,4,5,5, twin B 1191 g with Apgars 3 and 9. Complications: Due to extreme prematurity of Twin A and her small size, the NICU team was unable to intubate successfully Procedure: The patient was admitted to the OR with IV running and in place. She was properly identified as herself. A spinal was placed in the OR without difficulty.. She was placed in the dorsal supine position with a leftward tilt. A Davila catheter was inserted. She was then prepped and draped in the normal sterile fashion. An Allis test was used to confirm adequate anesthesia. Once confirmed, the incision was made with the scalpel and carried to the underlying fascia using the scalpel and the Bovie. The fascia was incised in the midline and incision was extended bilaterally using the curved Michaels scissors. The fascia was then dissected from the underlying rectus muscles in a series of sharp and blunt dissection using the Michaels scissors. Muscles were in the in the midline sharply using Metzenbaum scissors and the peritoneum was entered into bluntly using the surgeon's fingers. A large Jonnathan retractor was placed into the incision. A bladder blade was then placed into the incision to protect the bladder. Following this the bladder flap was created. Hysterotomy incision was then made in the scalpel. Upon uterine entry, the amniotic sac of twin A was ruptured for clear fluid. The infant was then delivered in the breech presentation. Her mouth and nose were suctioned on the field. The cord was clamped and cut and she was handed to the waiting NICU personnel. The second twin was delivered after manual of her membranes for clear fluid in the vertex presentation. She too was handed off to the waiting NICU personnel The placenta was delivered manually and taken off the field. The uterus was then exteriorized and cleared of all clots and debris. The hysterotomy incision was then closed in a running locked fashion using 0 Vicryl. The abdomen was then copiously irrigated with warm normal saline. Following this the uterus was replaced into the abdominal cavity. At this point the muscles were reapproximated in the midline using individual sutures of 0 Vicryl. Following this the fascia was closed in a running fashion using 0 Vicryl. Tissue was then copiously irrigated. A retention suture was placed in the subcuticular fat. Skin was closed in a running fashion using 3-0 Monocryl. The sponge lap needle and instrument counts were correct 2. The patient tolerated the procedure well. She was taken to recovery in stable condition.
[2019-07-27] MEDS: HYDROmorphone 1 MG/1 ML INJ IV PRN ×2 (22:42→22:50)
[2019-07-28] MEDS: HYDROmorphone 1 MG/1 ML INJ IV PRN (01:20)
[2019-07-28] MEDS ORDERED: oxyCODONE /ACETAMINOPHEN 5-325MG TAB PO PRN (01:37)
[2019-07-28] MEDS ORDERED: NALOXONE 0.4 MG/1 ML INJ IV PRN (01:37)
[2019-07-28] MEDS ORDERED: ONDANSETRON 4 MG/2 ML INJ IV PRN (01:37)
[2019-07-28] MEDS ORDERED: WITCH HAZEL/ GLYCERIN PAD TP PRN (01:37)
[2019-07-28] MEDS ORDERED: D5W/LACTATED RINGERS 1,000 ML IV SCH (01:37)
[2019-07-28] MEDS ORDERED: LANOLIN/ZINC/DIMETHICONE (LANSINOH) 7 GM TP PRN (01:37)
[2019-07-28] MEDS ORDERED: OXYTOCIN 20 UNIT/1000ML DRIP 20 UNITS/1,000 ML BAG IV SCH (01:37)
[2019-07-28] MEDS: ZOLPIDEM 5 MG TAB PO PRN (03:28)
[2019-07-28] MEDS: MORPHINE 2 MG/1 ML INJ IV PRN ×2 (06:35→12:59)
[2019-07-28] MEDS: NIFEdipine XL 30 MG TAB PO SCH (09:58)
[2019-07-28] MEDS: FERROUS SULFATE 325 MG TAB PO SCH (10:00)
--- NOTE | 2019-07-28 10:01 | Progress Note ---
Assessment and Plan POD 1 s/p rlts, doing well physically. 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 Ambulate, advance diet. Continue to monitor blood pressure as patient is chronic hypertensive. Subjective - Subjective Principal diagnosis: Twin IUP, Selective IUGR Interval history: Pt is POD 1 s/p rltcs for twins at 28.6 weeks. Twin A did not survive after secondary to extreme iugr and inability to intubate. Twin B is stable in NICU. Pt and her both very tearful regarding loss of twin. Patient reports: appetite normal, voiding normally, pain well controlled, ambulating normally : in NICU, Objective - Vital Signs Latest vital signs: Vital Signs Temp Pulse Resp BP BP Pulse Ox 07/28/19 09:57 98 H 156/98 07/28/19 09:01 98.1 F 86 18 156/105 98 07/28/19 06:35 18 07/28/19 04:10 97.4 F L 82 16 143/85 100 07/27/19 23:30 85 17 132/91 97 07/27/19 23:16 98.1 F 74 15 141/99 98 07/27/19 23:01 69 18 140/91 98 07/27/19 22:51 72 16 150/92 98 07/27/19 22:50 16 07/27/19 22:42 13 07/27/19 22:34 76 19 146/94 100 07/27/19 22:12 76 18 148/90 99 07/27/19 22:05 76 21 152/92 07/27/19 22:00 85 20 148/97 98 07/27/19 21:39 98.3 F 83 19 152/92 07/27/19 19:16 97.7 F 80 20 141/82 07/27/19 19:09 80 141/82 07/27/19 19:08 86 99 07/27/19 19:07 80 141/82 07/27/19 14:54 96 H 151/85 07/27/19 12:01 87 140/83 07/27/19 12:00 82 154/97 07/27/19 11:45 80 140/83 07/27/19 10:00 97.5 F L 90 20 153/91 Intake and Output 07/27/19 07/28/19 07/28/19 22:59 06:59 14:59 Intake Total 1340 200 Output Total 100 750 Balance 1240 -550 Intake: IV 1340 200 Left Hand 40 Output: Urine 100 750 Uretheral (Daivla) 600 Other: Estimated Blood Loss 600 600 - Exam Breasts: Present: deferred Cardiovascular: Present: Regular rate, Normal S1, Normal S2 Lungs: Present: Clear to auscultation, Normal air movement Abdomen: Present: normal appearance, soft, normal bowel sounds - Labs Labs: Abnormal lab results 07/27/19 Range/Units 15:18 [place] % (Auto) 13.4 H (0.0-7.3) % [place] # 0.9 H (0.0-0.8) K/mm3
[2019-07-28 11:24] LABS: Hematocrit 28.7 % (30.3-42.9)
[2019-07-28] MEDS ORDERED: MAGNESIUM HYDROXIDE (MOM) ORAL LIQD UDC PO PRN (16:00)
[2019-07-28] MEDS: DOCUSATE SODIUM 100 MG CAP PO SCH ×2 (16:00→22:01)
[2019-07-28] MEDS: HYDROcodone/ACETAMINOPHEN 5-325 MG TAB PO PRN ×2 (16:10→22:00)
[2019-07-29] MEDS: IBUPROFEN 800 MG TAB PO PRN (00:29)
[2019-07-29] MEDS: ZOLPIDEM 5 MG TAB PO PRN (01:18)
[2019-07-29] MEDS: HYDROcodone/ACETAMINOPHEN 5-325 MG TAB PO PRN ×3 (04:11→23:01)
--- NOTE | 2019-07-29 09:53 | Progress Note ---
Assessment and Plan - Patient Problems (1) delivery delivered Current Visit: Yes Status: Acute Plan to address problem: patient improving discharge home tomorrow Subjective - Subjective Date of service: 07/29/19 Principal diagnosis: Twin IUP, Selective IUGR Interval history: Patient is attempting to pump. States her pain is better controlled. Tolerating diet Patient reports: appetite normal, voiding normally, pain well controlled [place]: in NICU, (twin A ) Objective - Vital Signs Latest vital signs: Vital Signs Temp Pulse Resp BP Pulse Ox 07/29/19 07:56 98.3 F 107 H 18 145/84 98 07/28/19 23:51 98.7 F 89 18 146/89 95 07/28/19 22:06 98 H 141/91 07/28/19 20:08 98.4 F 97 H 20 158/94 99 07/28/19 18:33 93 H 20 145/81 96 07/28/19 16:53 98.2 F 20 162/110 07/28/19 09:57 98 H 156/98 Intake and Output 07/28/19 07/29/19 07/29/19 22:59 06:59 14:59 Output Total 800 500 Balance -800 -500 Output: Urine 800 500 Void 800 500 Other: Total, Output Amount 800 500 # Voids Void 2 600 - Exam Uterus: Present: normal Incision: Present: dressed - Labs Labs: Abnormal lab results 07/28/19 Range/Units 10:39 Hgb 10.0 L (10.1-14.3) gm/dl Hct 28.7 L (30.3-42.9) %
--- NOTE | 2019-07-29 09:56 | Discharge Summary ---
Providers - Providers Date of Admission: 07/20/19 17:19 Date of discharge: 07/30/19 Attending physician: GAIL AGUIRRE Primary care physician: GAIL AGUIRRE Hospitalization Reason for admission: rupture of membranes Delivery: Procedure: section Discharge diagnosis: delivery baby: twins Hospital course: Patient admitted for PPROM of twin A. Patient underwent a delivery that was complicated by twin A expiring secondary to IUGR and prematurity. Postop course uneventful Condition at discharge: Good Disposition: DC-01 TO HOME OR SELFCARE - Discharge Diagnoses (1) delivery delivered Status: Acute Plan - Discharge Medications Prescriptions: Docusate Sodium [Colace] 100 mg PO BID PRN #60 capsule PRN Reason: Constipation Labetalol HCl [Labetalol 300mg TAB] 300 mg PO BID #60 tablet HYDROcodone/APAP 5-325 [[place] 5/325] 1 each PO Q6HR PRN #30 tablet PRN Reason: Pain NIFEdipine XL [Procardia Xl] 30 mg PO QDAY #30 tablet - Provider Discharge Summary Activity: no sex for 6 weeks, no heavy lifting 4 weeks, no strenuous exercise Diet: routine Instructions: routine Additional instructions: [] Smoking cessation referral if applicable(refer to patient education folder for contact #) [] Refer to [facility] Booklet Call your doctor immediately for: * Fever > 100.5 * Heavy vaginal bleeding ( >1 pad per hour) * Severe persistent headache * Shortness of breath * Reddened, hot, painful area to leg or breast * Drainage or odor from incision. * Keep incision clean and dry at all times and follow doctor's instructions regarding bathing/showering schedule followup with Dr Aguirre in 1-2 weeks - Follow up plan
[2019-07-29] MEDS: FERROUS SULFATE 325 MG TAB PO SCH (10:21)
[2019-07-29] MEDS: DOCUSATE SODIUM 100 MG CAP PO SCH ×2 (10:21→23:01)
[2019-07-29] MEDS: NIFEdipine XL 30 MG TAB PO SCH (10:22)
[2019-07-30] MEDS: IBUPROFEN 800 MG TAB PO PRN (01:06)
[2019-07-30] MEDS: DOCUSATE SODIUM 100 MG CAP PO SCH (10:31)
[2019-07-30] MEDS: FERROUS SULFATE 325 MG TAB PO SCH (10:32)
[2019-07-30] MEDS: NIFEdipine XL 30 MG TAB PO SCH (10:32)
[2019-07-30 13:58] VITALS: BP 139/78
== END 2019-07-30 14:25 | disposition home or self-care (01) | DRG 786 ==
LOC: TRG 17:18 → LD 17:19 → OB 07-28 00:46
PROVIDERS: ADMIT Obstetrics & Gynecology; ATTEND Obstetrics & Gynecology
PROC: 10D00Z1 Extraction of Products of Conception, Low, Open Approach (ICD-10-PCS; principal; 2019-07-27)
PROC: 0UB90ZZ Excision of Uterus, Open Approach (ICD-10-PCS; 2019-07-27)
DX: O36.5930 Maternal care for other known or suspected poor fetal growth, third trimester, not applicable or unspecified (principal); O60.14X0 Preterm labor third trimester with preterm delivery third trimester, not applicable or unspecified; O10.92 Unspecified pre-existing hypertension complicating childbirth; O41.03X1 Oligohydramnios, third trimester, fetus 1; O42.913 Preterm premature rupture of membranes, unspecified as to length of time between rupture and onset of labor, third trimester; O30.033 Twin pregnancy, monochorionic/diamniotic, third trimester; Z79.899 Other long term (current) drug therapy; Z3A.28 28 weeks gestation of pregnancy; Z37.3 Twins, one liveborn and one stillborn
CPT/HCPCS: 36415; 76815; 76816; 76819; 76820; 85014; 85018; 85025; 86850; 86900; 86901; 88302; 88307; G0378; J0360; J0595; J0690; J0702; J1170; J1885; J2250; J2270; J2405; J2590; J2765; J3490; J7120; J7121